=== PATIENT | female | born 1955 | race Caucasian/White ===

== ENCOUNTER → 2018-02-04 01:19 | Outpatient (CLI) | payer BC, SELFPAY ==
[2018-02-04 12:19] LABS: TSH 1.46 uIU/mL (0.358-3.74)
== END ==
PROVIDERS: PCP Family Medicine; Visit Provider Family Medicine
DX: E03.9 Hypothyroidism, unspecified (principal)
CPT/HCPCS: 36415; 84443

== ENCOUNTER 2018-10-20 00:26 | Outpatient (CLI) | payer BC, SELFPAY ==
[2018-10-20 10:21] LABS: Anion Gap 5.9 mmol/L (3-11); BUN 13 mg/dL (7-18); CO2 31.1 mmol/L (21.0-32.0); CREATININE 0.74 mg/dL (0.55-1.02); Calcium 9.4 mg/dL (8.5-10.1); Chloride 104 mmol/L (98-107); Glucose 72 mg/dL (70-100); Potassium 4.2 mmol/L (3.5-5.1); Sodium 141 mmol/L (136-145); TSH 1.49 uIU/mL (0.358-3.74)
--- NOTE | 2018-10-20 12:28 | DI.MAMMO_ITS ---
SYMPTOMS/DIAGNOSIS: SCREENING, Z12.31 MAMMOGRAMS: Mammograms were interpreted according to the usual protocol including computer analysis with CAD system, tomosynthesis and C view imaging. The breast tissue is moderately radiodense. There is no dominant mass. There are no suspicious calcifications. There has been no significant interval change when compared with prior images. SUMMARY: No evidence of malignancy, category 1. Yearly screening mammography is recommended. Breast density category B. MQSA ASSESSMENT OF FINDINGS: Negative. Category 1. Patient will receive a letter notifying them of these results. BI-RADS category B. There are scattered areas of fibroglandular density.
== END 2018-10-20 00:46 ==
PROVIDERS: PCP Family Medicine; Visit Provider Family Medicine
DX: Z12.31 Encounter for screening mammogram for malignant neoplasm of breast (principal); Z13.1 Encounter for screening for diabetes mellitus; E03.9 Hypothyroidism, unspecified
CPT/HCPCS: 36415; 77063; 77067; 80048; 84443

== ENCOUNTER 2019-02-17 11:29 | Outpatient (CLI) | payer BC, SELFPAY ==
[2019-02-17 13:23] LABS: FREE T4 1.07 ng/dL (0.76-1.46); TSH 1.36 uIU/mL (0.36-3.74)
[2019-02-17 22:06] LABS: T3, Total 103 ng/dl (97-169)
== END 2019-02-17 11:49 ==
PROVIDERS: PCP Family Medicine; Visit Provider Family Medicine
DX: E03.9 Hypothyroidism, unspecified (principal)
CPT/HCPCS: 36415; 84439; 84443; 84480

== ENCOUNTER 2019-05-31 10:25 | Outpatient (REF) | payer BC, SELFPAY ==
[2019-05-31 11:05] LABS: Bilirubin Negative (Negative); Blood Small (Negative); Clarity Sl Cloudy (Clear); Glucose Negative (Negative); Ketones Negative (Negative); Leukocyte Esterase Small (Negative); Nitrite Negative (Negative); Urobilinogen 0.2 EU/dL (Up TO 0.2)
[2019-05-31 11:36] LABS: Bacteria Moderate HPF (Negative); Epithelial Cells Few HPF (Negative); WBC >50 HPF (0-5)
[2019-05-31 11:37] LABS: C & S Indicated? Yes; Crystals Negative HPF (Negative); Mucus Negative (Negative)
== END 2019-05-31 10:45 ==
LOC: LBN 10:25
PROVIDERS: PCP Family Medicine; Visit Provider Family Medicine
DX: R30.0 Dysuria (principal)
CPT/HCPCS: 87077; 81003; 81015; 87086; 87186

== ENCOUNTER 2019-12-14 00:56 | Outpatient (CLI) | payer BC, SELFPAY ==
--- NOTE | 2019-12-14 08:00 | DI.US_ITS ---
EXAM: US RENAL CLINICAL HISTORY: F/U BENIGN NEOPLASM RT KIDNEY,D30.01. TECHNIQUE: [place] scale, color and spectral Doppler were used. COMPARISON: CT CHEST ABD PELVIS WITH CONTRAST from 09/10/2014 FINDINGS: Renal size in cm: Right: 10.8 left: 10.8 Echogenicity: Normal. Hydronephrosis: No. Cyst or mass: 0.7 x 0.7 x 0.6 cm round well-circumscribed hyperechoic lesion in the midpole of the le ft kidney. Nephrolithiasis: No. Other findings: None. Bladder:Normal. Ureteral jets: Right: Visualized and unremarkable. Left: Visualized and unremarkable. Prevoid vol:410 cc Postvoid vol:12 cc DOPPLER FINDINGS: Normal and symmetric blood flow to the kidneys. IMPRESSION: 0.7 cm hyperechoic well-circumscribed lesion in the midpole of the left kidney. Sonographically, thi s is consistent with a benign lesion such as an angiomyolipoma. DATA REPOSITORY:
--- NOTE | 2019-12-14 11:21 | DI.MAMMO_ITS ---
EXAM: MG MAMMO SCREENING CLINICAL HISTORY: screening,Z12.39 TECHNIQUE: Bilateral full field digital CC and MLO mammographic images were obtained with 3D tomosyn thesis and utilizing computer aided detection (CAD). COMPARISON: Available for comparison. FINDINGS: Masses/Architectural Distortion: None seen. Microcalcifications: No suspicious pleomorphic-type are seen. Skin Thickening/Nipple Retraction: None. IMPRESSION: 1. No significant interval change with no specific features of malignancy noted. 2. Unless there is more urgent need, screening mammography is recommended, as per [employer] guidelines. BI-RADS Category 1 - Negative Breast Density - Category B - Scattered areas of fibroglandular density A negative radiographic report should not delay biopsy if a dominant or clinically suspicious mass is present. Up to ten percent of cancers are not identified on mammography. A negative report may reinforce clinical impression. Adenosis and dense breasts may obscure an underlying neoplasm. False positive reports average 6 to 10%. Patient will receive a letter notifying them of these results.
== END 2019-12-14 01:16 ==
PROVIDERS: PCP Family Medicine; Visit Provider Nurse Practitioner
DX: Z12.31 Encounter for screening mammogram for malignant neoplasm of breast (principal); D17.71 Benign lipomatous neoplasm of kidney
CPT/HCPCS: 76770; 77063; 77067

== ENCOUNTER 2019-12-14 01:33 | Outpatient (CLI) | payer BC, SELFPAY ==
[2019-12-14 12:25] LABS: Calculated LDL 96 mg/dL (<100); Cholesterol 203 mg/dL (<200); HDL Cholesterol 81 mg/dL (40-60); TSH 1.33 uIU/mL (0.36-3.74); Triglyceride 130 mg/dL (<150)
== END 2019-12-14 01:53 ==
PROVIDERS: PCP Family Medicine; Visit Provider Nurse Practitioner
DX: E03.9 Hypothyroidism, unspecified (principal); Z13.6 Encounter for screening for cardiovascular disorders
CPT/HCPCS: 36415; 80061; 84443

== ENCOUNTER 2020-01-06 07:48 | Outpatient (CLI) | payer BC, SELFPAY | END 2020-01-06 08:08 | PROVIDERS: PCP Family Medicine; Visit Provider Family Medicine | DX: Z11.59 Encounter for screening for other viral diseases (principal) | CPT/HCPCS: U0003 ==

== ENCOUNTER 2020-04-30 07:35 | Outpatient (CLI) | payer BC, SELFPAY ==
[2020-05-02 20:08] LABS: Patient Race White; SARS-CoV-2 RNA Undetected (Undetected); SARS-CoV-2 Specimen Source Nasal
== END 2020-04-30 07:55 ==
PROVIDERS: PCP Family Medicine; Visit Provider Family Medicine
DX: Z11.59 Encounter for screening for other viral diseases (principal)
CPT/HCPCS: U0003

== ENCOUNTER 2020-05-23 17:36 | Outpatient (REF) | payer BC, SELFPAY | END 2020-05-23 17:56 | LOC: LBN 17:36 | PROVIDERS: PCP Family Medicine; Visit Provider Nurse Practitioner Family | DX: N39.0 Urinary tract infection, site not specified (principal) | CPT/HCPCS: 87077; 87086; 87186 ==

== ENCOUNTER 2020-10-09 04:12 | Outpatient (CLI) | payer BC, SELFPAY ==
[2020-10-09 13:48] LABS: HCT 41.4 % (36.0-46.0); HGB 13.7 g/dL (11.2-15.7); MCH 30.4 pg (27.0-33.0); MCHC 33.1 % (32.0-36.0); MCV 91.8 fL (80-95); MPV 9.2 fL (8.0-11.0); Platelet Count 368 10^3/uL (130-400); RBC 4.51 10^6/uL (3.93-5.22); RDW 12.9 % (11.7-14.6); RDW-SD 43.5 fL; WBC 6.98 10^3/uL (4.4-10.8)
[2020-10-09 14:58] LABS: ALT 32 U/L (14-59); AST 19 U/L (15-37); Albumin 4.3 g/dL (3.4-5.0); Alkaline Phosphatase 78 U/L (46-116); Anion Gap 8.7 mmol/L (3-11); BUN 15 mg/dL (7-18); Bilirubin, Total 0.4 mg/dL (0.2-1.0); CO2 29.3 mmol/L (21.0-32.0); CREATININE 0.8 mg/dL (0.55-1.02); Calcium 9.9 mg/dL (8.5-10.1); Chloride 102 mmol/L (98-107); Glucose 90 mg/dL (74-106); Potassium 4.4 mmol/L (3.5-5.1); Sodium 140 mmol/L (136-145); TSH 1.99 uIU/mL (0.36-3.74); Total Protein 6.8 g/dL (6.4-8.2)
== END 2020-10-09 04:13 | disposition home or self-care (01) ==
LOC: LBO 04:12
PROVIDERS: PCP Family Medicine; Visit Provider Family Medicine
DX: E03.9 Hypothyroidism, unspecified (principal); R53.83 Other fatigue
CPT/HCPCS: 36415; 80053; 85027; 84443

== ENCOUNTER 2021-01-30 02:21 | Outpatient (CLI) | payer BC, SELFPAY ==
--- NOTE | 2021-01-30 13:12 | DI.MAMMO_ITS ---
Exam(s) MAMMO SCREENING EXAM: MAMMO SCREENING CLINICAL HISTORY: screening,Z12.39. TECHNIQUE: Bilateral full field digital CC and MLO mammographic images were obtained with 3D tomosyn thesis and utilizing computer aided detection (CAD). COMPARISON: Prior mammograms dating back to 2010, the most recent being December 2019. FINDINGS: In the left breast on 3D cc imaging there is a 6 x 4 millimeter nodule located approximately 4 cm in from the nipple on the 3D cc image. This is unchanged from 2013 and therefore benign. In the right breast there is a slightly lobulated noncalcified nodule measuring 4 x 2 millimeters loc ated 4-5 cm in from the nipple on 3D MLO imaging. Is also unchanged from prior studies No malignant-appearing microcalcification groups in either breast There is no significant architectural distortion nor skin thickening-retraction. IMPRESSION: Stable benign findings. No radiographic evidence of malignancy. BI-RADS Category 2 - Benign Findings Breast Density - Category B - Scattered areas of fibroglandular density Breast density Category C or D implies that the patient has dense breast tissue. Dense breast tissue can make it harder to find cancer on a mammogram. Dense breast tissue is also associated with an incr eased risk of breast cancer. This information about the result of the mammogram report was provided to the patient to raise their awareness. Use this report when you speak with the patient about their risks for breast cancer, which includes their family history. At that time, you may recommend additional screening tests (Ultrasoun d or MRI) as these tests may add significant information. A negative radiographic report should not delay biopsy if a dominant or clinically suspicious mass is present. Up to ten percent of cancers are not identified on mammography. A negative report may reinforce clinical impression. Adenosis and dense breasts may obscure an underlying neoplasm. False positive reports average 6 to 10%. Patient will receive a letter notifying them of these results.
== END 2021-01-30 02:41 ==
PROVIDERS: PCP Family Medicine; Visit Provider Nurse Practitioner Family
DX: Z12.31 Encounter for screening mammogram for malignant neoplasm of breast (principal); R92.8 Other abnormal and inconclusive findings on diagnostic imaging of breast
CPT/HCPCS: 77063; 77067

== ENCOUNTER 2021-03-18 14:28 | Outpatient (REF) | payer BC, SELFPAY | END 2021-03-18 14:29 | disposition home or self-care (01) | LOC: LBN 14:28 | PROVIDERS: PCP Family Medicine; Visit Provider Nurse Practitioner Family | DX: R30.9 Painful micturition, unspecified (principal) | CPT/HCPCS: 87077; 87086; 87186 ==

== ENCOUNTER 2021-04-02 14:46 | Outpatient (REF) | payer BC, SELFPAY | END 2021-04-02 14:47 | disposition home or self-care (01) | LOC: LBN 14:46 | PROVIDERS: PCP Family Medicine; Visit Provider Nurse Practitioner Family | DX: R35.0 Frequency of micturition (principal) | CPT/HCPCS: 87086 ==

== ENCOUNTER 2021-10-08 04:24 | Outpatient (CLI) | payer BC, SELFPAY ==
[2021-10-08 08:15] LABS: Abs Immature Grans 0.02 10^3/uL (0.0-0.06); Absolute Basophil Count 0.03 10^3/uL (0.0-0.2); Absolute Eosinophil Count 0.32 10^3/uL (0.0-0.7); Absolute Lymphocyte Count 1.44 10^3/uL (1.2-3.4); Absolute Monocyte Count 0.38 10^3/uL (0.1-0.8); Absolute Neutrophil Count 2.63 10^3/uL (1.2-6.7); Basophils % 0.6; Eosinophils % 6.6; HCT 41.7 % (36.0-46.0); HGB 13.7 g/dL (11.2-15.7); Immature Grans % 0.4; Lymphocytes % 29.9; MCH 31.5 pg (27.0-33.0); MCHC 32.9 % (32.0-36.0); MCV 95.9 fL (80-95); MPV 9.2 fL (8.0-11.0); Monocytes % 7.9; Neutrophils % 54.6; Nucleated RBC 0 %; Platelet Count 306 10^3/uL (130-400); RBC 4.35 10^6/uL (3.93-5.22); RDW 12.4 % (11.7-14.6); RDW-SD 43.8 fL; WBC 4.82 10^3/uL (4.4-10.8)
[2021-10-08 10:29] LABS: ALT 26 U/L (14-59); AST 16 U/L (15-37); Albumin 3.8 g/dL (3.4-5.0); Alkaline Phosphatase 73 U/L (46-116); BUN 18 mg/dL (7-18); Bilirubin, Total 0.6 mg/dL (0.2-1.0); CREATININE 0.7 mg/dL (0.55-1.02); Calcium 9.1 mg/dL (8.5-10.1); Calculated LDL 90 mg/dL (<100); Chloride 108 mmol/L (98-107); Cholesterol 188 mg/dL (<200); Ferritin 66 ng/mL (8-252); Glucose 91 mg/dL (74-106); HDL Cholesterol 72 mg/dL (40-60); Potassium 4.6 mmol/L (3.5-5.1); Sodium 144 mmol/L (136-145); TSH (W/Ref FT4) 2.54 uIU/mL (0.36-3.74); Total Protein 6.3 g/dL (6.4-8.2); Triglyceride 133 mg/dL (<150)
[2021-10-09 12:57] LABS: Lab Add On Test DONE
[2021-10-09 14:27] LABS: Vitamin B12 535 pg/mL (193-986)
[2021-10-10 05:34] LABS: Vitamin D 25 Total 38.2 ng/mL (30-100)
== END 2021-10-08 04:25 | disposition home or self-care (01) ==
LOC: LBO 04:24
PROVIDERS: PCP Nurse Practitioner Adult Health; Referring Provider Nurse Practitioner Adult Health; Visit Provider Nurse Practitioner Adult Health
DX: R53.83 Other fatigue (principal); E03.9 Hypothyroidism, unspecified; M85.89 Other specified disorders of bone density and structure, multiple sites; Z13.220 Encounter for screening for lipoid disorders; Z51.81 Encounter for therapeutic drug level monitoring; R71.8 Other abnormality of red blood cells
CPT/HCPCS: 36415; 80053; 80061; 82306; 82607; 82728; 82746; 84443; 85025

== ENCOUNTER → 2022-03-12 02:34 | Outpatient (CLI) | payer BC, SELFPAY ==
--- NOTE | 2022-03-12 08:47 | DI.MAMMO_ITS ---
Exam(s) MAMMO SCREENING EXAM: MAMMO SCREENING CLINICAL HISTORY: screening TECHNIQUE: Bilateral full field digital CC and MLO mammographic images were obtained with 3D tomosyn thesis and utilizing computer aided detection (CAD). COMPARISON: Available for comparison. FINDINGS: Masses/Architectural Distortion: There is a stable nodule in the lower inner quadrant of the left essence ast. There is a new 5 mm nodule in the upper right breast seen on the MLO view approximately 3 cm fr om the nipple. Microcalcifications: No suspicious pleomorphic-type are seen. Skin Thickening/Nipple Retraction: None. IMPRESSION: 1. New ovoid nodule in the upper right breast on the MLO view. 2. This area should be further evaluated with a spot compression view and right breast ultrasound. BI-RADS Category 0 - Assessment Incomplete: Need additional imaging evaluation Breast Density - Category B - Scattered areas of fibroglandular density Breast density category C or D implies that the patient has dense breast tissue. Dense breast tissue is very common and is not abnormal but dense breast tissue can make it harder to find cancer on a ma mmogram. Also, dense breast tissue may increase their breast cancer risk. This information about the result of the mammogram report was provided to the patient to raise their awareness. Use this report when you speak with the patient about their risks for breast cancer, which includes their family hist ory. At that time, you may recommend for more screening tests (Ultrasound or MRI) as they might be us eful based on their risk. A negative radiographic report should not delay biopsy if a dominant or clinically suspicious mass is present. Up to ten percent of cancers are not identified on mammography. A negative report may reinforce clinical impression. Adenosis and dense breasts may obscure an underlying neoplasm. False positive reports average 6 to 10%. Patient will receive a letter notifying them of these results.
== END ==
PROVIDERS: PCP Nurse Practitioner Adult Health; Visit Provider Nurse Practitioner Family
DX: Z12.31 Encounter for screening mammogram for malignant neoplasm of breast (principal)
CPT/HCPCS: 77063; 77067

== ENCOUNTER → 2022-03-17 01:29 | Outpatient (CLI) | payer BC, SELFPAY ==
--- NOTE | 2022-03-17 | DI.US_ITS ---
Exam(s) MG MAMMO SCREEN CALL BACK UNI US BREAST RT COMPLETE EXAM: MG MAMMO SCREEN CALL BACK UNI -RIGHT AND COMPLETE RIGHT BREAST ULTRASOUND CLINICAL HISTORY: F/U MAMMO, NEW UPPER RT BREAST NODULE. TECHNIQUE: Unilateral spot mammographic images obtained with 3D tomosynthesisand utilizing computer aided detection (CAD). . Complete RIGHT breast Ultrasound was also performed, including all 4 quadrants, the retroareolar paulino on, and the ipsilateral axilla. COMPARISON: Prior mammograms were reviewed. This additional imaging was performed due to findings described on the recent screening mammogram of 03/12/2022. FINDINGS: DIAGNOSTIC RIGHT BREAST MAMMOGRAM: Additional mammographic views performed today do not dissipate the small nodule described on the rece nt screening mammogram. However, it exhibits a notch,, probably consistent with a small benign intra mammary lymph node. COMPLETE RIGHT BREAST ULTRASOUND: Ultrasound performed today reveals no evidence of solid or significant cystic lesions in all 4 quadra nts nor in the retroareolar region.. This is further evidence that the finding on the mammogram is m ost probably a benign intramammary lymph node. No focal ultrasound findings in the immediate retroar eolar region. Scanning of the ipsilateral right axilla is negative for adenopathy. IMPRESSION: Benign-appearing findings as described above. Appropriate follow-up , as discussed by myself with the patient and her today, is repeat righ t breast imaging in 6 months, this to include repeat right breast mammogram and ultrasound. Earlier imaging would be recommended if there is a self detected breast change noted.. The patient was informed of these findings and recommendations prior to leaving the department today. BI-RADS Category 3 - 6 month - Probably Benign Finding: Recommend follow-up mammography in 6 months Breast Density - Category C - Heterogeneously dense Breast density Category C or D implies that the patient has dense breast tissue. Dense breast tissue can make it harder to find cancer on a mammogram. Dense breast tissue is also associated with an incr eased risk of breast cancer. This information about the result of the mammogram report was provided to the patient to raise their awareness. Use this report when you speak with the patient about their risks for breast cancer, which includes their family history. At that time, you may recommend additional screening tests (Ultrasoun d or MRI) as these tests may add significant information. A negative radiographic report should not delay biopsy if a dominant or clinically suspicious mass is present. Up to ten percent of cancers are not identified on mammography. A negative report may reinforce clinical impression. Adenosis and dense breasts may obscure an underlying neoplasm. False positive reports average 6 to 10%. Patient will receive a letter notifying them of these results.
== END ==
PROVIDERS: PCP Nurse Practitioner Adult Health; Visit Provider Nurse Practitioner Family
DX: Z12.31 Encounter for screening mammogram for malignant neoplasm of breast (principal); R92.8 Other abnormal and inconclusive findings on diagnostic imaging of breast; N60.81 Other benign mammary dysplasias of right breast
CPT/HCPCS: 76642; 77063; 77067

== ENCOUNTER → 2022-05-20 02:31 | Outpatient (CLI) | payer BC, SELFPAY ==
--- NOTE | 2022-05-20 09:00 | ETT_ITS ---
APPROVED REPORT Exam: Exercise Treadmill Patient Location: Out-Patient Room/Bed: Stress Nurse: Linda Mazariegos RN Ordering Provider:SUDHA ZAMAN, Contact Number: [phone] BMI: 24.95 Baseline Rhythm: Sinus Rhythm, RBBB, LPFB Comment: inverted T wave V2 Indications: H/O SUPRAVENTRICULAR TACHYCARDIA, LEG EDEMA, CHEST PAIN Medical History Medical History: SVT s/p Ablation, Hypothyroidism, Depression, Spontaneous pneumothorax x 2 (2000) w/ repair, bilateral leg edema Cardiac Medications: None Allergies: Sulfa, Ciprofloxacin Cardiac Risk Factors: FHX of CAD Previous Cardiac Procedures: Ablation (2012) Pretest Chest Pain Characteristics: No chest pain Exercise History: Physically active Physical Disabilities: None Lung Sounds: Clear to auscultation Heart Sounds: Regular Stress Test Details Test: Exercise stress testing was performed using a Giuliano protocol. Rest Stress HR Resting HR Supine: 56 bpm Max Heart Rate (APMHR): 156 bpm Resting HR Standin bpm Target HR (85% APMHR): 132 bpm Max HR Achieved: 169 bpm % of APMHR: 108 Recovery HR: 73 bpm HR response to stress: Normal HR response to stress BP Resting BP Supine: 138/76 mmHg Resting BP Standin/72 mmHg Max BP: 178/80 mmHg Recovery BP: 138/78 mmHg BP response to stress: Normal blood pressure response to stress. ECG Resting ECG: Sinus Rhythm, RBBB, LPFB, inverted T wave in V2 Ectopy: None Stress ECG: Sinus Tachycardia ST Change: No significant ST segment changes noted Arrhythmia: rare PVC Comment: difficult to interpret d/t significant artifact as exercise progressed Recovery ECG: Sinus Rhythm Recovery ST Change: No significant ST segment changes noted Recovery Arrhythmia: rare PAC Clinical Reason for Termination: Fatigue Stress Symptoms: General Fatigue Exercise duration: 11 min22 sec Highest Stage Reached: Stage 4: 4.2 mph at 16% grade. Exercise capacity: 13.48 METs Avila Treadmill Score: 5.7 Rate Pressure Product: 05842 Stress ECG Conclusion 1. Resting electrocardiogram showed right bundle branch block and left posterior fascicular block 2. Patient exercised on the Giuliano protocol and completed a workload of 13.48 METS, limited by fatigue 3. Normal heart rate and blood pressure response to exercise. The patient achieved greater than 100% of predicted heart rate for age 4. The electrocardiographic portion of the test did not demonstrate any evidence of myocardial ischem ia 5. Significant artifact was noted at peak exercise 6. There were no significant dysrhythmias Avila Treadmill Score is 5.7 which is Low risk. Stress Test Summary STAGE Time (mins) Speed (mph) Grade (%) HR BP SpO2 SYMPTOMS METS Supine 56 138/76 Standing 63 122/72 1 3 1.7 10 80 132/68 98 4.5 2 6 2.5 12 94 140/62 7 3 9 3.4 14 122 158/62 10 1 min recovery 143 164/78 3 min recovery 82 178/80 6 min recovery 73 138/78
== END ==
PROVIDERS: PCP Nurse Practitioner Adult Health; Visit Provider Nurse Practitioner Adult Health
DX: Z86.79 Personal history of other diseases of the circulatory system (principal); R60.0 Localized edema; R07.9 Chest pain, unspecified
CPT/HCPCS: 93017

== ENCOUNTER → 2022-05-20 08:20 | Outpatient (CLI) | payer BC, SELFPAY ==
--- OUTSIDE RECORDS SUMMARY | 2022-05-20 08:23 | XMS_ITS | Encounter Summary ---
:1955 Author Organization [facility] Address [address] [place] [id number] Care Team Providers Name Role Phone Chu Wayne MD Primary Care Provider Unavailable Encounter Details Date Type Department Care Team Description 02/09/2017 Hospital Encounter [facility]- [place] Unknown, Provider, Venkat Gin PETERSON [address] [facility] [phone] [place] [address] (Work) [phone] Social History Tobacco Use Types Packs/Day Years Used Date Smoking Tobacco: Former Alcohol Use Standard Drinks/Week Comments Yes 0 (1 standard drink = 0.6 oz pure alcoho l) 1-2 glasses wine/evening Sex Assigned at Date Recorded Not on file documented as of this encounter Medications at Time of Discharge Medication Sig Dispensed Refills Start Date End Date magnesium oxide (MAG-OX) Take 500 mg by mouth 0 400 mg tablet daily. MV,CA,MIN/FA/HERBAL NO.157 Take by mouth. 0 (ESTROVEN MAXIMUM STRENGTH ORAL) documented as of this encounter Discharge Disposition Disposition Code Departure Means Destination Home or Self Intermediate documented in this encounter Plan of Treatment Not on filedocumented as of this encounter Visit Diagnoses Not on filedocumented in this encounter Care Teams Physician Allergist Immunologist Relationship Specialty Start Date End Date Chu Wayne MD PCP - General 06/07/13 documented as of this encounter
--- OUTSIDE RECORDS SUMMARY | 2022-05-20 08:23 | XMS_ITS | Encounter Summary ---
:1955 Author Organization [facility] Address [address] [place] [address] Care Team Providers Name Role Phone Ariane Wayne MD Primary Care Provider Unavailable Encounter Details Date Type Department Care Team Description 06/08/2013 Hospital Encounter [facility] Debbie SVT Cardiovascular Unit Krishan Sierra, (supraventricular [address] [facility] tachycardia) [place] [address] [place] [address] [place] (Primary [phone] [address] D[address]) [place] [address] Social History Tobacco Use Types Packs/Day Years Used Date Smoking Tobacco: Former Alcohol Use Standard Drinks/Week Comments Yes 0 (1 standard drink = 0.6 oz pure alcoho l) 1-2 glasses wine/evening Sex Assigned at Date Recorded Not on file documented as of this encounter Last Filed Vital Signs Vital Sign Reading Time Taken Comments Blood Pressure 100/69 06/08/2013 1545 EST Pulse 58 06/08/2013 0633 EST Temperature 37.2 ??C (99 ??F) 06/08/2013 1530 EST Respiratory Rate 18 06/08/2013 1545 EST Oxygen Saturation 100% 06/08/2013 1545 EST Inhaled Oxygen Concentration - - Weight 62.6 kg (138 lb) 06/08/2013 0655 EST Height 165.1 cm (5' 5) 06/08/2013 0655 EST Body Mass Index 22.96 06/08/2013 0655 EST documented in this encounter Discharge Instructions Krisahn Hatch MD - 06/08/2013 Discharge Instructions for Non Anesthesia Ablation and Electrophysiogy Study (EPS) Patients 1. Wound Care: ?? You may remove the Band-Aids/Dressings from the sites the next morning ?? You may shower the following day. ?? No tub bathing for five days. This includes hot tubs and pools. 2. Call your physician or nurse if: ?? You develop drainage, redness, or swelling at any of the sites ?? You develop a fever ?? You develop increased tenderness and/or increased bruising over sites which doesn't resolve in 2 days ?? You develop a persistent and/or productive cough ?? Your symptoms reoccur 3. Activity: ?? You can resume your normal activities in one week, unless you have been instructed otherwise ?? No vigorous activity for 1 week after your ablation. This includes running, squatting and heavy lifting (>10 lbs). ?? If you are traveling by car or airplane in the next week, you will need to stand and move around every 2 hours to promote circulation ?? You may resume driving after 24 hours. ?? You may return to work after 3 days if your work demands are not physical. 4. Medications: ?? Resume prior medications unless otherwise instructed If you have any questions or concerns, please don't hesitate to call [facility]iology at [phone]. AttachmentsThe following attachments cannot be sent through [facility] Everywhere. ELECTROPHYSIOLOGY STUDY AND CATHETER ABLATION: WHAT TO EXPECT AT HOME (SWEDISH) documented in this encounter Medications at Time of Discharge Medication Sig Dispensed Refills Start Date End Date magnesium oxide (MAG-OX) Take 500 mg by mouth 0 400 mg tablet daily. MV,CA,MIN/FA/HERBAL NO.157 Take by mouth. 0 (ESTROVEN MAXIMUM STRENGTH ORAL) documented as of this encounter Discharge Disposition Disposition Code Departure Means Destination Home or Self Care documented in this encounter Progress Notes Shwetha Tejeda RN - 06/08/2013 1344 EST 1320 Received report from Krystle SAMSON and care assumed. Patient complains of chest pain. Toradol ordered. BP low. NS increased to 50cc/hr. No complications at site. Right and left leg wounds are dry and intact. Repeated to patient to keep legs straight and head down. 1402 Patient fed tuna, tomato soup and water by RN. now at bedside. agrees to feed patient when RN not there but to keep her head down and legs straight. 1417 Patient and given discharge instructions. Both verbalize understanding. Patient ate onesandwich worth of tuna, one small can of tomato soup and water. Presently wants to rest. 1553 Patient out of bed after passing orthos. paged to see patient before discharge. 1618 Patient out of bed and tolerates being out of bed well. Seen by . 1636 Patient discharged to home. Patient left CVU in wheelchair pushed by her . Rissa Capone RN - 06/08/2013 1246 EST 1254 pt arrived awake and alert, groin sites clean dry intact, pain at 2 out of 10 Karina Batres LPN - 06/08/2013 0715 EST 0625 Iam Kurtz Arrived in CVU walking, used BR. Orders released and acknowledged by RN. Denies pain at this time. 0625 labs sent stat; EP prep completed. 0635 Spouse at bedside, call song with in reach, stretcher in low position, side rails up. Report toco-signing RN. 0650 Pt states comfortable; waiting for procedure. FANTASMA Barillas 0725 Pt updated- - waiting for MD to come and consent. Demonstrated understanding. Lab called by charge nurse- - results of blood test. MM 0730 Dr. Sapp in speaking to pt and spouse. Signed consent with chart. MM 0800 OOB to BR- - voided. Received results of lab tests. 0805 To EP lab via stretcher with transport and spouse. MM documented in this encounter H&P Notes ASSOCIATE PROFESSOR OF COMMUNICATION, SCAN 2 - 06/13/2013 1016 EST Krishan Jones MD - 06/08/2013 0811 EST Cardiology EP H&P Admit Date: 06/08/2013 Date of Service: 06/08/2013 PCP: ARIANE WAYNE MD Code Status: Full Code Chief Complaint: palpitations HPI: 57 yo healty and very active woman with long history of paroxysmal palpitations and tachycardia, getting worse, especially with exercise, in recent months. Occ. Chest discomfort. Recently documented 30min SVT on Holter. Denies SOB, dizzines, syncope, orthopnea, PND, edema, fevers, chills myalgia, arthralgia, bleeding, digestive problems. PMH PSH Past Medical History Diagnosis Date ??? SVT (supraventricular tachycardia) ??? Pneumothorax 1999; 2000 Past Surgical History Procedure Laterality Date ??? Hysterectomy Social History Family History History Substance Use Topics ??? Smoking status: Former Smoker ??? Smokeless tobacco: Not on file ??? Alcohol Use: Yes 1-2 glasses wine/evening Father with CAD and CABG at 65. Medications Prescriptions prior to admission Medication Status Sig Dispense Refill ??? magnesium oxide (MAG-OX) 400 mg tablet Active Take 500 mg by mouth daily. ??? MV,CA,MIN/FA/HERBAL NO.157 (ESTROVEN MAXIMUM STRENGTH ORAL) Active Take by mouth. No prescriptions prior to admission Allergies Allergies Allergen Reactions ??? Sulfa (Sulfonamide Antibiotics) Other (See Comments) Mouth Sores Review of Systems: A ten point review of systems was performed. Pertinent positives are listed above in HPI, all othersare negative. Objective/Physical Exam: VS: Patient Vitals for the past 8 hrs: BP Pulse Heart Rate Resp Temp SpO2 O2 Device 06/08/13 0633 119/73 mmHg 58 58 BPM 18 36.2 ??C (97.2 ??F) 100 % Room air Pain: Patient Vitals for the past 8 hrs: Numeric Pain Level (Scale 1-10) 06/08/13 0633 0 Weight: Weight : 62.596 kg (138 lb) Body mass index is 22.96 kg/(m^2). Glucose Readings (last 8 hours): No results found for this basename: GLUCOSEFINGE, in the last 72 hours Exam: General appearance: alert, cooperative, no distress Skin: Skin color, temperature, turgor normal. No rashes or lesions Head: Normocephalic, without obvious abnormality, atraumatic Eyes: conjunctivae/corneas clear Neck: supple, symmetrical, trachea midline, no carotid bruit and no JVD Lungs: clear to auscultation bilaterally Heart: regular rate and rhythm, S1, S2 normal, no murmur, click, rub or gallop Abdomen: soft, non-tender; bowel sounds normal Mental Status: awake and alert; oriented to person, place, and time Extremities: extremities warm, atraumatic, no cyanosis or edema Pressure Ulcer Present on admission? No Data Review: Labs: I have personally reviewed CBC: Lab Results Component Value Date WBC 5.70 06/08/2013 RBC 4.35 06/08/2013 HGB 13.7 06/08/2013 HCT 40.1 06/08/2013 MCV 92 06/08/2013 MCH 31.5 06/08/2013 MCHC 34.2 06/08/2013 PLT 313 06/08/2013 BMP: Lab Results Component Value Date NA 141 06/08/2013 K 4.2 06/08/2013 CL 103 06/08/2013 CO2 29 06/08/2013 BUN 17 06/08/2013 CREATININE 0.72 06/08/2013 Coagulation: Lab Results Component Value Date PROTIME 9.9 06/08/2013 INR 0.9 06/08/2013 Other Studies: PE CT nl, Echo nl, Stress Echo nl. eGFR calculation: GFR, Calculated Date Value Range Status 06/08/2013 >60 >60 ml/min/1.73m2 Final Assessment: 57 yo healty and very active woman with long history of paroxysmal palpitations and tachycardia. Documented SVT on Holter. AVNRT vs. AVRT vs. AT. Not interested in Medications. Plan : Patient Active Hospital Problem List: SVT (supraventricular tachycardia) (06/08/2013) EPS/Ablation today. Discharge Plan: Home or self care today KRISHAN JONES MD 06/08/2013 8:16 documented in this encounter Procedure Notes Krishan Jones MD - 06/08/2013 1236 ESTProcedure(s): [id number] Pre-Procedure Diagnose(s): SVT (supraventricular tachycardia) (HCC-CMS) ([facility]) Post-Procedure Diagnose(s): AVNRT (AV reji re-entry tachycardia) (HCC-CMS) (HCC) Electrophysiology Laboratory Preliminary Report -- Invasive Electrophysiology Procedure Date of Service/Procedure: 06/08/2013 Attending Physician: Krishan Jones MD Pre-Procedure Diagnosis/Indication: Iam Kurtz is a 57 y.o. 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 Anesthesia: A moderate level of anesthesia/conscious sedation was used., Local anesthesia was used.. Access: Right femoral vein 1 x 7.0 fr and 8.5 fr Left femoral vein 3 x 7.0 fr Post-Procedure Condition: The condition of the patient was Good. Complications: None. Estimated Blood Loss: Minimal. Unless otherwise noted, there were no specimens removed, cultures obtained, or drains retained. Clinical Trial: The patient is not enrolled in a clinical trial. 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 Post-Procedure Diagnosis: AVNRT (atypical, fast/slow) Plan: see post-procedure orders and bedrest for 3 hour(s). At the completion of the procedure, the attending physician has explained the findings, therapies, any complications and treatment plan to the patient. With the patients consent, all family members andpatient support persons who were present at the conclusion of the procedure have been notified of these results and treatment plans as well. Post Procedural Disposition: Outpatient status is indicated. Reference: Hospitalization Criteria for Pacemaker and ICD Placement and EP/Ablation; Heart Rhythm Society; Revised December, Final report will appear on imaging tab when complete. KRISHAN JONES MD 06/08/2013 12:39 documented in this encounter Plan of Treatment Not on filedocumented as of this encounter Procedures Procedure Name Priority Date/Time Associated Comments Diagnosis ECG REPORT - SCANNED 06/22/2013 10:49 EST ECG REPORT - SCANNED 06/13/2013 14:04 EST INVASIVE CARDIOLOGY 06/13/2013 10:16 REPORT-SCANNED EST ECG REPORT - SCANNED 06/13/2013 10:16 EST EKG 12-LEAD Routine 06/08/2013 13:39 Results for this EST procedure are i n the results section. EKG 12-LEAD Routine 06/08/2013 6:52 Results for this EST procedure are i n the results section. PROTIME STAT 06/08/2013 6:45 Results for this EST procedure are i n the results section. COMPLETE BLOOD COUNT STAT 06/08/2013 6:45 Resu lts for this EST procedure are i n the results section. BUN STAT 06/08/2013 6:45 Results for this EST procedure are i n the results section. CREATININE STAT 06/08/2013 6:45 Results for this EST procedure are i n the results section. ELECTROLYTES STAT 06/08/2013 6:45 Results for this EST procedure are i n the results section. documented in this encounter Results ECG REPORT - SCANNED (06/22/2013 10:49 EST) Specimen (Source) Anatomical Collection Method Collection Time Re ceived Time Location / / Volume Laterality 06/22/2013 10:49 EST Narrative This result has an attachment that is no t available. Scan 2 Full Stack Software Engineer PROCEDURE/MINOR SURGICAL ORD ERABLES ECG REPORT - SCANNED (06/13/2013 14:04 EST) Specimen (Source) Anatomical Collection Method Collection Time Re ceived Time Location / / Volume Laterality 06/13/2013 14:04 EST Narrative This result has an attachment that is no t available. Scan 2 Full Stack Software Engineer PROCEDURE/MINOR SURGICAL ORD ERABLES INVASIVE CARDIOLOGY REPORT-SCANNED (06/13/2013 10:16 EST) Specimen (Source) Anatomical Collection Method Collection Time Re ceived Time Location / / Volume Laterality 06/13/2013 10:16 EST Narrative This result has an attachment that is no t available. Scan 2 Full Stack Software Engineer PROCEDURE/MINOR SURGICAL ORD ERABLES ECG REPORT - SCANNED (06/13/2013 10:16 EST) Specimen (Source) Anatomical Collection Method Collection Time Re ceived Time Location / / Volume Laterality 06/13/2013 10:16 EST Narrative This result has an attachment that is no t available. Scan 2 Full Stack Software Engineer PROCEDURE/MINOR SURGICAL ORD ERABLES EKG 12-LEAD (06/08/2013 13:39 EST) Specimen (Source) Anatomical Collection Method Collection Time Re ceived Time Location / / Volume Laterality 06/08/2013 13:39 EST Narrative FA EKG - 06/21/2013 16:24 EST ?[facility] ? Test Date: ?2013-06-08 Pat Name: ? IAM KURTZ ? Department: ?? CVU ? Room: ? CVU14 Gender: ? F ?Signal Supervisor: ?? [id number] : ?1955 ? Requested By: KRISHAN JONES MD Order Number: [id number] ? Reading MD: ?? FRIEDLIUDMILAKE RONALDO MD ? Measurements Intervals ?[place] ? Rate: ? 74 ? P: ?77 WI: ? 238 ?QRS: ?98 QRSD: ? 139 ?T: ?42 QT: ? 397 ? QTc: ?424 ? Interpretive Statements SINUS RHYTHM WITH FIRST DEGREE AV BLOCK RIGHT BUNDLE BRANCH BLOCK Abnormal ECG. Compared to ECG 06/08/2013 06:52:50 Sinus rhythm now present Right bundle-branch block now present I have reviewed the tracing and have eit her agreed or edited the findings in this report. Electronically Signed On 16:24:41 EST by SYED HIGGINS MD. Procedure Note Syed Higgins MD - 06/21/2013Form atting of this note might be different from the original. [facility] Test Date: 2013-06-08 Pat Name: IAM KURTZ Department: CVU Room: [facility] Gender: F Signal Supervisor: [id number] : 1955 Requested By: KRISHAN PATEL MD Order Number: [id number] Reading MD: Kay HIGGINS MD Measurements Intervals [place] Rate: 74 P: 77 WI: 238 QRS: 98 QRSD: 139 T: 42 QT: 397 QTc: 424 Interpretive Statements SINUS RHYTHM WITH FIRST DEGREE AV BLOCK RIGHT BUNDLE BRANCH BLOCK Abnormal ECG. Compared to ECG 06/08/2013 06:52:50 Sinus rhythm now present Right bundle-branch block now present I have reviewed the tracing and have eit her agreed or edited the findings in this report. Electronically Signed On 16:24:41 EST by SYED HIGGINS MD. Krishan Jones MD CARDIAC ECG ORDERABLES Performing Organization Address City/State/ZIP Code Phon e Number [facility] EKG FA EKG EKG 12-LEAD (06/08/2013 6:52 EST) Specimen (Source) Anatomical Collection Method Collection Time Re ceived Time Location / / Volume Laterality 06/08/2013 6:52 EST Narrative [facility] EKG - 06/10/2013 13:10 EST ?[facility] ? Test Date: ?2013-06-08 Pat Name: ? IAM KURTZ ? Department: ?? CVU ? Room: ? CVU14 Gender: ? F ?Signal Supervisor: ?? [id number] : ?1955 ? Requested By: KRISHAN JONES MD Order Number: [id number] ? Reading MD: ?? JUAN KIRIT MD ? Measurements Intervals ?[place] ? Rate: ? 54 ? P: ?47 WI: ? 226 ?QRS: ?60 QRSD: ? 94 ? T: ?54 QT: ? 431 ? QTc: ?417 ? Interpretive Statements SINUS BRADYCARDIA WITH FIRST DEGREE AV B LOCK No previous ECG available for comparison Electronically Signed On 06-10-13 13:10: 40 EST by JUAN BETH MD Procedure Note Juan Beth Jr., MD - 06/10/2013For matting of this note might be different from the original. [facility] Test Date: 2013-06-08 Pat Name: IAM KURTZ Department: CVU Room: [facility] Gender: F Signal Supervisor: [id number] : 1955 Requested By: KRISHAN PATEL MD Order Number: [id number] Cynthia MD: Vitaliy BETH MD Measurements Intervals [place] Rate: 54 P: 47 WI: 226 QRS: 60 QRSD: 94 T: 54 QT: 431 QTc: 417 Interpretive Statements SINUS BRADYCARDIA WITH FIRST DEGREE AV B LOCK No previous ECG available for comparison Electronically Signed On 06-10-13 13:10: 40 EST by JUAN BETH MD Krishan Jones MD CARDIAC ECG ORDERABLES Performing Organization Address City/State/ZIP Code Phon e Number [facility] EKG [facility] EKG PROTIME (06/08/2013 6:45 EST) P athologist Signature Pro Time 9.9 9.5 - 13.1 [facility] secs LAB I.N.R. 0.9 0.9 - 1.1 [facility] Ratio LAB Comment: Moderate Intensity Coumadin INR = 2.0-3. 0 Adjustments in anticoagulant therapy dos e should be based upon the INR and NOT the Pro Ti me. Specimen Anatomical Collection Method Collection Time Receive d Time (Source) Location / / Volume Laterality Blood specimen 06/08/2013 6:45 06/08/2013 7:49 (specimen) EST EST Krishan Jones MD HEMATOLOGY & PF4 ORDERABLES Performing Organization Address City/[facility]/ZIP Code Phon e Number [facility] [address] [place] [address] SERVICES [facility] [address] [place] [address] HEMAGRAM (06/08/2013 6:45 EST) athologist Signature WBC 5.70 4.0 - 12.4 [facility] K/cmm LAB RBC 4.35 3.86 - 5.04 [facility] M/cmm LAB Hemoglobin 13.7 11.6 - 15.2 [facility] gm/dl LAB HCT 40.1 34.9 - 44.4 [facility] % LAB MCV 92 81 - 98 fl [facility] MCH 31.5 26.7 - 33.3 [facility] pg LAB MCHC 34.2 32.1 - 35.9 [facility] gm/dl LAB PLT 313 141 - 320 [facility] K/cmm LAB RDW-CV 12.7 11.7 - 14.6 [facility] % LAB Specimen Anatomical Collection Method Collection Time Receive d Time (Source) Location / / Volume Laterality Blood specimen 06/08/2013 6:45 06/08/2013 7:49 (specimen) EST EST Krishan Jones MD HEMATOLOGY & PF4 ORDERABLES Performing Organization Address City/[facility]/ZIP Code Phon e Number [facility] [address] [place] [address] SERVICES [facility] [address] [place] [address] ELECTROLYTES (06/08/2013 6:45 EST) P athologist Signature Sodium 141 136 - 145 [facility] mEq/L LAB Potassium 4.2 3.5 - 5.0 [facility] mEq/L LAB Chloride 103 96 - 110 [facility] mEq/L LAB CO2 29 24 - 32 [facility] mEq/L LAB Specimen Anatomical Collection Method Collection Time Receive d Time (Source) Location / / Volume Laterality Blood specimen 06/08/2013 6:45 06/08/2013 7:49 (specimen) EST EST Krishan Jones MD CHEMISTRY & BLOOD GAS ORDERA BLES Performing Organization Address City/[facility]/ZIP Code Phon e Number [facility] [address] [place] [address] [facility] [address] [place] [address] CREATININE (06/08/2013 6:45 EST) P athologist Signature Creatinine 0.72 0.52 - [facility] 1.04 mg/dl LAB GFR, Calculated >60 >60 [facility] ml/min/1.7 LAB 3m2 Specimen Anatomical Collection Method Collection Time Receive d Time (Source) Location / / Volume Laterality Blood specimen 06/08/2013 6:45 06/08/2013 7:49 (specimen) EST EST Krishan Jones MD CHEMISTRY & BLOOD GAS ORDERA BLES Performing Organization Address City/[facility]/ZIP Code Phon e Number [facility] [address] [place] [address] SERVICES [facility] [address] [place] [address] BUN (06/08/2013 6:45 EST) P athologist Signature BUN 17 10 - 26 [facility] mg/dl LAB Specimen Anatomical Collection Method Collection Time Receive d Time (Source) Location / / Volume Laterality Blood specimen 06/08/2013 6:45 06/08/2013 7:49 (specimen) EST EST Krishan Jones MD CHEMISTRY & BLOOD GAS ORDERA BLES Performing Organization Address City/[facility]/ZIP [facility] Phon e Number [facility] [address] [place] [address] [facility] [address] [place] [address] documented in this encounter Visit Diagnoses Diagnosis SVT (supraventricular tachycardia) (HCC- CMS) (HCC) - Primary Other specified cardiac dysrhythmias documented in this encounter Administered Medications Inactive Administered Medications - up to 3 most recent administrations Medication Order MAR Action Action Date Dose Rate Site ketOROLAC (TORADOL) injection 15 mg Given 06/08/2013 13:31 EST 15 mg 15 mg, intravenous, EVERY 6 HOURS PRN, 1 dose, Starting on Thu06/08/13 at 1304, Until Thu06/08/13 at 1331, Pain sodium chloride 0.9 % (NS) Rate Documented 06/08/2013 13:20 EST 30 mL/hr 30 mL/hr infusion 30 mL/hr, intravenous, CONTINUOUS, Starting on Thu06/08/13 at 0645, Until Thu06/08/13 at 1841, Routine, Preprocedure documented in this encounter Historical Medications This list may reflect changes made after this encounter. Medication Sig Dispensed Refills Start Date End Date MV,CA,MIN/FA/HERBAL NO.157 Take by mouth. 0 (ESTROVEN MAXIMUM STRENGTH ORAL) magnesium oxide (MAG-OX) Take 500 mg by mouth 0 400 mg tablet daily. added in this encounter Active and Recently Administered Medications Times are shown in EST. Continuous Medication Order 06/06/2013 06/07/2013 06/08/2013 sodium chloride 0.9 % (NS) infusion (CANCELED) 0645 (Due)1320 (Rate Documented - Provider: Shwetha Tejeda RN) at 30 mL/hr, 30 mL/hr, intravenous, CONT INUOUS, Starting Thu06/08/13 at 0645, Until Thu06/08/13 at 1841, Routine PRN Medication Order 06/06/2013 06/07/2013 06/08/2013 ketOROLAC (TORADOL) injection 15 mg (COMPLETED) 1331 (Given - Provider: Shwetha Tejeda RN) 15 mg, intravenous, EVERY 6 HOURS PRN, 1 dose, Starting Thu06/08/13 at 1304, Until Thu06/08/13 at 2359, Pain documented in this encounter Orders Medications Ordered That Might Not Have Count Last Ord ered Date First Ordered Date Been Administered acetaminophen (TYLENOL) tablet 650 mg 1 06/08/2013 fentaNYL citrate (PF) 50 mcg/mL injection 4 2012 heparin 1,000 unit/mL injection 1 06/08/2013 isoproterenol (ISUPREL) 0.2 mg/mL 1 06/08/2013 injection ketOROLAC (TORADOL) 30 mg/mL (1 mL) 1 06/08/2013 injection lidocaine 10 mg/mL (1 %) injection 1 06/08/2013 midazolam (VERSED) 1 mg/mL injection 3 06/08/2013 Nursing Count Last Ordered Date First Ordered Date BEDREST 1 06/08/2013 CARDIAC MONITORING 1 06/08/2013 CHANGE IV TO SALINE LOCK 1 06/08/2013 CONTRAINDICATION TO ANTICOAGULATION 1 06/08/2013 THERAPY INSERT PERIPHERAL IV 1 06/08/2013 PATIENT AT LOW RISK FOR VTE: RISK OF 1 06/08/2013 MECHANICAL PROPHYLAXIS OUTWEIGHS VITAL SIGNS 1 06/08/2013 Admission Count Last Ordered Date First Ordered Date STATUS: OUTPATIENT MEDICAL OP BED/SERVICES 1 06/08 STATUS: OUTPATIENT OBSERVATION SERVICES 1 06/08/20 13 Transfer Count Last Ordered Date First Ordered Date NON-TEACHING SERVICE 1 06/08/2013 NOTIFY PPS OF DISCHARGE COMPLETE 1 06/08/2013 Discharge Count Last Ordered Date First Ordered Date DISCHARGE PATIENT 1 06/08/2013 documented in this encounter Care Teams Toilet Products Molder Relationship Specialty Start Date End Date Ariane Wayne MD PCP - General 06/07/13 documented as of this encounter
--- OUTSIDE RECORDS SUMMARY | 2022-05-20 08:23 | XMS_ITS | Encounter Summary ---
:1955 Author Organization [facility] Address [address] [place] [address] Care Team Providers Name Role Phone Chu Wayne MD Primary Care Provider Unavailable Encounter Details Date Type Department Care Team Description 02/09/2017 Results Only [facility] Pepe Alvarado, [address] [place] [address] [place] [address] (Wo rk) Social History Tobacco Use Types Packs/Day Years Used Date Smoking Tobacco: Former Alcohol Use Standard Drinks/Week Comments Yes 0 (1 standard drink = 0.6 oz pure alcoho l) 1-2 glasses wine/evening Sex Assigned at Date Recorded Not on file documented as of this encounter Plan of Treatment Not on filedocumented as of this encounter Procedures Procedure Name Priority Date/Time Associated Diagnosis Comme [facility] SURGICAL PATHOLOGY Routine 02/09/2017 18:02 Resul ts for this EDT procedure are i n the results section. documented in this encounter Results SURGICAL PATHOLOGY (02/09/2017 18:02 EDT) Component Value Ref Test Analysis Performed At [facility] Method Time Signature Pathology SURGICAL PATHOLOGY REPORT [facility] Report: Reports generated via electronic interface contain origina l data; CENTER however they are lacking the format of the original report. LABORATORY Caution should be taken when reading/interpreting unformat zenon reports. SERVICES Name: ? ALLYSON KURTZ ? Accession #: ? [id number] ? : ? 1955 (Age: [age]) ??F ? Collect Date: ? 02/09/2017 ? Location: ? [facility] ? Receive Date: ? 02/09/2017 ? Provider: PEPE PEACE MD Copy to: LEXUS STUART MD ? Final Pathologic Diagnosis: A. COLON, CECUM AND ASCENDING, BIOPSY: - Colonic mucosa with no specific pathologic features. B. COLON, TRANSVERSE, BIOPSY: - Colonic mucosa with no specific pathologic features. C. COLON, DESCENDING, BIOPSY: - Colonic mucosa with no specific pathologic features. D. COLON, SIGMOID, BIOPSY: - Colonic mucosa with no specific pathologic features. Document reviewed and electronically signed by: JULIAN COLNI MD Report ??Date: 02/12/2017 10:21 By the signature above, the attending physician certifies th at he/she has personally conducted a gross and/or microscopic examin ation of the described specimens and rendered or confirmed the above diagnosis. Specimen(s) Received: A. ??Cecum and ascending colon B. ??Transverse colon C. ??Descending colon D. ??Sigmoid Clinical History: Diarrhea x1 month Gross Description: A. ?Received in formalin labelled with proper patie nt identification (initials C, P) and cecum a nd ascending colon are three pink-fuller tissues (0.3 x 0.2 x 0.1 cm to 0.3 x 0.2 x 0.2 cm). Entirely submitted in block A1. B. ?Received in formalin labelled with proper patie nt identification (initials C, P) and transverse colon are four pink-fuller tissues (0.3 x 0.2 x 0.1 cm to 0.6 x 0.2 x 0.1 cm). Entirely submitted in block B 1. C. ?Received in formalin labelled with proper patie nt identification (initials C, P) and descending colon are four pink-fuller tissues (0.3 x 0.2 x 0.1 cm to 0.7 x 0.2 x 0.1 cm). Entirely submitted in block C 1. D. ?Received in formalin labelled with proper patie nt identification (initials C, P) and sigmoid are six pink-fuller t issues (0.2 x 0.2 x 0.2 cm to 0.5 x 0.3 x 0.1 cm). Entirely submitted in blocks D1 and D2. MIKE Corona (ASCP) 02/10/2017 8:51 AM End of Report Specimen Anatomical Collection Method Collection Time Receive d Time (Source) Location / / Volume Laterality 02/09/2017 18:02 02/09/2017 EDT 18:02 EDT Pepe Peace MD PATHOLOGY ORDERABLES Performing Organization Address City/State/ZIP Code Phon e Number [facility] [address] [place] [id number] SERVICES documented in this encounter Visit Diagnoses Not on filedocumented in this encounter Care Teams Casualty Claims Supervisor Relationship Specialty Start Date End Date Chu Wayne MD PCP - General 06/07/13 documented as of this encounter
--- OUTSIDE RECORDS SUMMARY | 2022-05-20 08:23 | XMS_ITS | Encounter Summary ---
:1955 Author Organization [facility] Address [address] [place] [address] Care Team Providers Name Role Phone Chu Wayne MD Primary Care Provider Unavailable Encounter Details Date Type Department Care Team Description 10/09/2021 Lab Requisition [facility] Outr Resulting Lab, Pathology & Laboratory Provider [facility] [address] [place], [place] [address] Social History Tobacco Use Types Packs/Day Years Used Date Smoking Tobacco: Never Assessed Sex Assigned at Date Recorded Not on file documented as of this encounter Plan of Treatment Not on filedocumented as of this encounter Procedures Procedure Name Priority Date/Time Associated Diagnosis Comme nts FOLATE Routine 10/08/2021 8:10 EDT Results for this procedure are i n the results section . documented in this encounter Results FOLATE (10/08/2021 8:10 EDT) athologist Signature Folate 11.0 See Note 10/09/2021 [facility] ng/mL 22:26 EDT [facility] SERVICES Comment: Reference Ranges for Folate: Deficient: ?< 3.4 ng/mL Indeterminate: ??3.4 - 5.4 ng/mL Normal: ? > 5.4 ng/mL The results of this assay can be falsely elevated due to the consumption of Biotin. Specimen Anatomical Collection Method Collection Time Receive d Time (Source) Location / / Volume Laterality Blood VENOUS BLOOD / 10/08/2021 8:10 10/09/2021 Unknown EDT 21:20 EDT Provider Outr Resulting Lab CHEMISTRY & BLOOD GAS JUAN PRIETO Performing Organization Address City/State/ZIP Code Phon e Number [facility] [address] [place] [address] SERVICES documented in this encounter Visit Diagnoses Not on filedocumented in this encounter Care Teams Sub Acute Care Nurse Relationship Specialty Start Date End Date Chu Wayne MD PCP - General 06/07/13 documented as of this encounter
--- OUTSIDE RECORDS SUMMARY | 2022-05-20 08:24 | XMS_ITS | Encounter Summary ---
:1955 Author Organization [facility] [place] [address] Care Team Providers Name Role Phone Breanna Cortez MD Primary Care Provider Encounter Details Date Type Department Care Team Description 07/08/2021 Office Visit Dermatology at [facility] Solar [facility] entigo; Juan PETERSON [place] (actinic keratosis); [address] Nevus Sourav B DERMATOLOGY [place], [place] [id number] [phone] Social History Tobacco Use Types Packs/Day Years Used Date Smoking Tobacco: Never Smokeless Tobacco: Never Alcohol Use Standard Drinks/Week Comments Yes 7 (1 standard drink = 0.6 oz pure alcoho l) Sex Assigned at Date Recorded Not on file documented as of this encounter Progress Notes Patrick Villafana MD - 07/08/2021 11:30 AM EST Problem: 1. Repeat 2-year skin checkup 2. History of nonmelanoma skin cancers in her parents Patient follows up for a 2-year repeat skin checkup. She has been doing well. She has not noted any new lesions of concern. She is spending time between [place] [place] and a place in [place]. She occasionally notes some roughness of the upper cutaneous lip Physical examination was a pleasant 65-year-old woman who has a benign examination of the scalp the face the neck the chest the back the hands on forearms thighs and calves. She has only minimal visible photodamage. She has very even pigmentation and very minimal solar elastotic damage. She has some mi ld actinic damage of the upper cutaneous lip. Assessment plan: Actinic keratoses mild, upper cutaneous lip 1. Begin tretinoin 0.025% cream apply thin layer q. OHS to upper cutaneous lip dispense 20 g with 3 refills Benign skin examination 1. Patient reassured that overall benign skin examination 2. Continue sun avoidance precautions 3. Return to clinic another 2 years for repeat check. Sooner for new lesions of concern CC: Breanna Cortez MD documented in this encounter Plan of Treatment Upcoming Encounters Date Type Specialty Care Team Description 07/09/2023 Office Visit Dermatology Patrick Villafana MD [address] [facility] DERMATOLOGY [place], [place] [address] (Wo rk) documented as of this encounter Visit Diagnoses Diagnosis Solar lentigo Other dyschromia AK (actinic keratosis) Actinic keratosis Nevus Benign neoplasm of skin, site unspecifie d documented in this encounter Care Teams Voice Systems Engineer Relationship Specialty Start Date End Date Breanna Cortez MD PCP - General 03/06/[address] [place] [address] [address] [facility] [address] [place] [address] documented as of this encounter
--- OUTSIDE RECORDS SUMMARY | 2022-05-20 08:24 | XMS_ITS | Encounter Summary ---
:1955 [place] [address] Care Team Providers Name Role Phone Breanna Cortez MD Primary Care Provider Reason for Visit Auth/Cert - Closed Specialty Diagnoses / Procedures Referred By Contact Refer red To Contact Diagnoses Contusion of unspecified thigh, subsequent encounter right thigh deformity Procedures PRO SUCT LANDON LIPECTOMY, LOW EXTREM PRO TISSUE GRAFTS, OTHER (E.G. AUTOLOGOUS FAT GRAFT) SUCTION ASSISTED LIPECTOMY, LOWER EXTREMITY Referral ID Status Reason Start Date Expiration Date Visits Requ ested Visits Authorized [id number] Closed 1 1 Encounter Details Date Type Department Care Team Description 05/29/2015 Anesthesia Event Outpatient Surgery Dillon Mcduffie MD [facility] [place] [address] Alvord Enedina Christina MD [facility] [place] [address] [facility] [place] [address] Anesthesia Record Procedure Summary Procedure Name Responsible Anesthesia Start Anesthesia Stop Time Anesthesiologist Time SUCTION ASSISTED Carito Mcduffie MD 05/29/15 1358 05/29/15 1557 LIPECTOMY, LOWER EXTREMITY [facility] (Right: Thigh) Events Date Time Event Comment 05/29/2015 1357 1358 Start 1401 AN Verify 1401 An Start Data 1405 An Induction 1406 An Intubation 1413 Anesthesia Ready 1414 Handoff Intra-procedure anesthesia care was transferred afte r review of the patient's history, current anesthetic/surgical status and plan, accord ing to the ANES Provider Handoff Christiana Morrell to Sushant 1551 Extubation/LMA Out 1552 an stop data 1557 Recovery or ICU Handoff Patient care was transferred to the destination unit staff after review of the patient's medica l history, current anesthetic/surgi annabel status and plan, according to the Provider Handoff Checklist. 1557 Stop Name Total Propofol 150 mg Propofol INF 750.3 mg fentaNYL 200 mcg Midazolam 2 mg IV Lidocaine 60 mg Dexamethasone 4 mg Ondansetron 8 mg ceFAZolin (ANCEF) 2 gram/50 mL infusion 2 g Ketorolac 30 mg lactated ringers infusion 1,000 mL 700 mL Agents Name O2 Air N2O Sevoflurane (et) Blood No blood administrations on file. Lines, Drains, and Airways Type Details Placement Removal Drain/Device Site 05/29/15; Right; 05/29/15 0000 by (lateral); thigh; Shilpi Worthy RN collapsible closed device Wound 05/02/15; 1518; thigh; 05/02/15 1518 by 03/03/22 1715 by puncture; from seroma; Sathya Lambert D ierdre L 03/03/22 (LDA cleanup Rachid Burks RN utility RA#[id number]); 1715 (LDA cleanup utility RA#[id number]) Incision 05/29/15; thigh; 03/03/22 05/29/15 0000 by 03/03 1715 by (LDA cleanup utility Shilpi Worthy RN Mulle r, Dierdre L RA#[id number]); 1715 (LDA cleanup utility RA#[id number]) PIV 05/29/15; 1206; median 05/29/15 1206 by 05/29/15 1731 by cubital vein right Shiv Lewis Kate L, RN (antecubital fossa); etio-zgb-iwizbn catheter system; 20 gauge; no longer indicated, catheter intact, removed per policy/procedure; 05/29/15; 1731 Supraglottic Mask Ventilation: Easy 05/29/15 1406 by 05/29/15 1551 by (1); LMA Type: Unique; Priti Ho CRNA Whi tney, Heather S, LMA Size: 4; Inserted by: PAKO Mallory CRNA documented in this encounter Social History Tobacco Use Types Packs/Day Years Used Date Smoking Tobacco: Never Smokeless Tobacco: Never Alcohol Use Standard Drinks/Week Comments Yes 7 (1 standard drink = 0.6 oz pure alcoho l) Sex Assigned at Date Recorded Not on file documented as of this encounter OR Notes Anesthesia Postprocedure Evaluation - Carito Mcduffie MD - 05/29/2015 5:32 PM EST [facility] Department of Anesthesiology Post-procedure Note Patient: Allyson Cesar Procedure Summary Date Anesthesia Start Anesthesia Stop Room / Location 05/29/15 1358 1557 [facility] OR [address] [place] [address] [facility] Procedure Diagnosis Surgeon Responsible Provider SUCTION ASSISTED LIPECTOMY, LOWER EXTREMITY (Right Thigh); INCISION & DRAINAGE HEMATOMA, SEROMAOR FLD. COLLECTION, LOWER EXTREMITY (Right ); ULTRASONIC GUIDANCE FOR NEEDLE PLACEMENT (Right ) No diagnosis on file. Divine Root MD Herrick, Michael D, MD (right thigh deformity) Last (1hr) Vitals: BP Temp Pulse 60 (05/29/15 1656) Resp SpO2 100 % (05/29/15 165) Patient Location: PACU/[facility] Level of Consciousness: Awake and Alert Pain Management: Satisfactory Analgesia PONV: None Cardiovascular Status: At Baseline and Hemodynamically Stable Respiratory Status: At Baseline and Room Air Postoperative Fluid Status: Intravascular EUvolemia Possible Anesthetic Complications: NONE apparent at time of evaluation Final Primary Anesthesia Type: General (The anesthetic type performed was the same as planned.) Comments: Pain improved and was doing well at discharge CARITO MCDUFFIE MD Anesthesia Preprocedure Evaluation - Kristian Morrell DO - 05/29/2015 1:57 PM EST Pre-Anesthesia Evaluation for: Allyson Cesar a 59 y.o. female. Procedure(s): SUCTION ASSISTED LIPECTOMY, LOWER EXTREMITY TISSUE GRAFT, PARATENON, FAT, DERMIS (OTHER) Patient Active Problem List Diagnosis ??? Traumatic hematoma of thigh with residual deformity ??? Spider angioma Past Medical History Diagnosis Date ??? Spontaneous pneumothorax 2000 right side ??? Uterine bleeding 2000 ??? SVT (supraventricular tachycardia) 2012 ??? Skiing accident 09/10/2014 fractured pubis ramis and L1 compression Past Surgical History Procedure Laterality Date ??? Lung surgery 2000 ??? Partial hysterectomy 2000 partial vaginal ??? Ventricular ablation surgery 2012 ??? Hematoma,seroma, fluid collection incision and drainage lower extremity Right 11/22/2014 History Substance Use Topics ??? Smoking status: Never Smoker ??? Smokeless tobacco: Never Used ??? Alcohol Use: 4.2 oz/week 7 Not specified per week History Drug Use No Allergies Allergen Reactions ??? Sulfa (Sulfonamide Antibiotics) Medications: MAR and/or home medications have been reviewed. Physical Exam: Filed Vitals: 05/29/15 1311 BP: 132/69 Pulse: 69 Temp: 37 ??C (98.6 ??F) Resp: 16 Body mass index is 22.47 kg/(m^2). Weight - Scale: 61.236 kg (135 lb) Airway Assessment: Mallampati: II TM distance: >3 FB Neck ROM: full Cardiovascular Assessment: Rhythm: regular Pulmonary Assessment: breath sounds clear to auscultation Dental Assessment: - normal exam Misc Assessment: Patient is wearing No contact(s). IV access: Peripheral line Anesthesia Plan: ASA 2 General, with a(n) intravenous induction 59 y/o female for Lipectomy R leg s/p injury No hx of difficulty w anesthesia (has had nausea related to Percocet) Denies CP/SOB/PND/Orthopnea/Active SUNG ss/Palp/Syncope Plan GA/SHAHRAM/VA and IV maint/P op PACU care and IV pain control w local provided by surgical service.Antiemetics IC discussed and obtained Region - Other Informed Consent: Anesthetic plan and risks discussed with patient. Plan discussed with HOSPICE COORDINATOR. PAT Staff Note documented in this encounter Plan of Treatment Upcoming Encounters Date Type Specialty Care Team Description 07/09/2023 Office Visit Dermatology Patrick Villafana MD [address] DERMATOLOGY [place], [place] [address] (Wo rk) documented as of this encounter Visit Diagnoses Not on filedocumented in this encounter Administered Medications Inactive Administered Medications - up to 3 most recent administrations Medication Order MAR Action Action Date Dose Rate Site ceFAZolin (ANCEF) 2 gram/50 mL Given 05/29/2015 2:13 PM EST 2 g infusion 1 dose, Starting on Thu05/29/15 at 1324, Until Thu05/29/15 at 1413, OLIVIER BOURGON: cabinet override dexamethasone (DECADRON) injection Given 05/29/2015 2:08 PM EST 4 mg Intravenous, PRN, Starting on Thu05/29/15 at 1408, Until Thu05/29/15 at 1557, Anesthesia Intra-op, Routine fentaNYL 50 mcg/mL multi-dose injection Given 05/29/2015 3:15 PM EST 50 mcg Intravenous, PRN, Starting on Thu05/29/15 at 1358, Until Thu05/29/15 at 1557, Pain, Anesthesia Intra-op, Routine Given 05/29/2015 3:04 PM EST 25 mcg Given 05/29/2015 2:59 PM EST 25 mcg ketorolac (TORADOL) injection Given 05/29/2015 3:35 PM EST 30 mg PRN, Starting on Thu05/29/15 at 1535, Until Thu05/29/15 at 1557, Pain, Anesthesia Intra-op, Routine lactated ringers infusion 1,000 mL New Bag 05/29/2015 1:58 PM EST 1,000 mL, at 100 mL/hr, Intravenous, CONTINUOUS, Starting on Thu05/29/15 at 1345, Until Thu05/29/15 at 1732, Day of Surgery (Day of Procedure) lidocaine (PF) (XYLOCAINE) 100 mg/5 mL (2 %) Given 5 2:05 PM EST 60 mg injection Intravenous, PRN, Starting on Thu05/29/15 at 1405, Until Thu05/29/15 at 1557, Anesthesia Intra-op, Routine midazolam (PF) (VERSED) 1 mg/mL multi-dose Given 05/29/2015 1:58 PM EST 2 mg injection Intravenous, PRN, Starting on Thu05/29/15 at 1358, Until Thu05/29/15 at 1557, Sleep, Anesthesia Intra-op, Routine ondansetron (ZOFRAN) injection Given 05/29/2015 3:35 PM EST 8 mg Intravenous, PRN, Starting on Thu05/29/15 at 1535, Until Thu05/29/15 at 1557, Nausea, Anesthesia Intra-op, Routine propofol (DIPRIVAN) 10 mg/mL bolus injection Given 2:05 PM EST 150 mg (Anesthesia) Intravenous, PRN, Starting on Thu05/29/15 at 1405, Until Thu05/29/15 at 1557, Anesthesia Intra-op propofol (DIPRIVAN) infusion New Bag 05/29/2015 2:08 PM 150 mcg/kg/min 54.9 mL/hr Intravenous, CONTINUOUS PRN, EST Starting on Thu05/29/15 at 1408, Until Thu05/29/15 at 1557, Anesthesia Intra-op, Routine documented in this encounter Care Teams Commercial Real Estate Manager Relationship Specialty Start Date End Date Breanna Cortez MD PCP - General 03/06/[address] [place] [address] documented as of this encounter
--- OUTSIDE RECORDS SUMMARY | 2022-05-20 08:24 | XMS_ITS | Encounter Summary ---
:1955 Author Organization [facility] Address [address] [place] [address] Care Team Providers Name Role Phone Breanna Cortez MD Primary Care Provider Reason for Visit Reason Comments Follow-up R THIGH RAMOS GABRIELLE LEYVAI ON DOI 09/10/14 Consultation (Routine) - Closed Specialty Diagnoses / Procedures Referred By Contact Refer red To Contact Orthopaedics Diagnoses Ramos Gabrielle lesion Divine Root MD [facility] 3c [facility] [address] [place] [address] [place] [address] Referral ID Status Reason Start Date Expiration Date Visits V isits Requested Authorized [id number] Closed Consult, 09/24/2015 09/23/2016 1 1 Test & Treat Encounter Details Date Type Department Care Team Description 10/04/2015 Office Visit Orthopaedics at [facility] Robert Evangelista, Traumatic hematoma of [facility] thigh, right, [facility] [place] [address] [facility] [phone] ORTHOPAEDIC SURGERY [place] [address] Social History Tobacco Use Types Packs/Day Years Used Date Smoking Tobacco: Never Smokeless Tobacco: Never Alcohol Use Standard Drinks/Week Comments Yes 7 (1 standard drink = 0.6 oz pure alcoho l) Sex Assigned at Date Recorded Not on file documented as of this encounter Last Filed Vital Signs Vital Sign Reading Time Taken Comments Blood Pressure 121/67 10/04/2015 8:37 AM EDT Pulse 63 10/04/2015 8:37 AM EDT Temperature - - Respiratory Rate - - Oxygen Saturation - - Inhaled Oxygen Concentration - - Weight 61.9 kg (136 lb 6.4 oz) 10/04/2015 8:37 AM EDT Height 163.8 cm (5' 4.5) 10/04/2015 8:37 AM EDT Body Mass Index 23.05 10/04/2015 8:37 AM EDT documented in this encounter Progress Notes Britt Andrew, MIKE - 10/04/2015 9:01 AM EDT Date of Visit: 10/04/15 Staff: CC: Right thigh mass- s/p trauma 2014. HPI: 59 y.o. Female referred from Dr. Sánchez. Ms. Cesar sustained a trauma last year during a skiing incident. She sustained a pelvic fracture in addition to a injury to the soft tissues of the thigh. She has been followed for this and has undergone multiple IR drains in addition to a drain left intact for 6 weeks around the time of Jun/Jul. She had capsular debridement along with infusion of tetracycline to having the area close down. She has additionally undergone liposuction to even out the soft tissue in the area of the right buttock/lateral thigh. She states it does feel sore at times, but rarely limits her. She mostly gets discomfort with pressure or more aggressive activity. She states it overall is getting smaller in size. Denies any recent fever or chills, but states around JUN she did, but [place] work up. Past Surgical History Procedure Laterality Date ??? Lung surgery 2000 ??? Partial hysterectomy 2000 partial vaginal ??? Ventricular ablation surgery 2012 ??? Hematoma,seroma, fluid collection incision and drainage lower extremity Right 11/22/2014 ??? Pro suct daylin lipectomy, low extrem Right 05/29/2015 SUCTION ASSISTED LIPECTOMY, LOWER EXTREMITY performed by Divine Root MD at [facility] ??? Pro drainage of hematoma/fluid Right 05/29/2015 INCISION & DRAINAGE HEMATOMA, SEROMA OR FLD. COLLECTION, LOWER EXTREMITY performed by Divine Root MD at [facility] ??? Prg sono guide needle biopsy Right 05/29/2015 ULTRASONIC GUIDANCE FOR NEEDLE PLACEMENT performed by Divine Root MD at [facility] Past Medical History Diagnosis Date ??? Spontaneous pneumothorax 2001 right side ??? Uterine bleeding 2000 ??? SVT (supraventricular tachycardia) 2012 ??? Skiing accident 09/10/2014 fractured pubis ramis and L1 compression Patient Active Problem List Diagnosis Code ??? Spider angioma I78.1 ??? Traumatic hematoma of thigh with residual deformity S70.10XA Denies fever or chills. Denies numbness or tingling. Denies CP, SOB or cough. Denies GI symptoms. History Social History ??? Marital Status: Spouse Name: N/A Number of Children: N/A ??? 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 Smoking status: Never Smoker ??? Smokeless tobacco: Never Used ??? Alcohol Use: 4.2 oz/week 7 Standard drinks or equivalent per week ??? Drug Use: No ??? Sexual Activity: Not on file Other Topics Concern ??? Not on file Social History Narrative Exam: alert and oriented x 3. NAD sitting in chair. Fullness about the right lateral thigh/buttock- non tender Incision about the thigh well healded Adherent area posterior thigh. No erythema Gentle ROM of hip painless. LE warm and dry. Xray: MRI shows fluid collection and injury consistent with ramos-trisha lesion. A/P: Right thigh injury. Patient seen with Dr. Evangelista. At this time recommend no treatment at this time and avoid all invasive procedures to avoid potential infection. Would benefit from compression (which she is doing). She should continue with activity as tolerated. Follow up prn Discussed s/s of infection. Robert Evangelista MD - 10/04/2015 8:58 AM EDT I have seen the patient and reviewed Britt Andrew [facility] history/physical and I agree with the detailsas written. The assessment and plan were formulated in discussion with me and I agree with them as documented. She is a ronel 59-year-old female sustained a pelvic fracture with Briana Gabrielle lesion. This hasbeen drained multiple times by IR, I post suction by plastic surgery. She is sent here today by plastic surgery for further evaluation. Currently patient has no pain. Decreasing size of right buttock/la teral hip fluid collection. No signs of infection. All incisions are well- healed. At this point, recommended continued's SPANXs usage. Suspect that this will continue to decrease in size. There is small risk of infection. Recommended against any other surgical intervention at this time. Recommended against any type of aspiration as well. We'll see patient back as needed. Robert Evangelista MD, MS 10/04/2015 documented in this encounter Plan of Treatment Upcoming Encounters Date Type Specialty Care Team Description 07/09/2023 Office Visit Dermatology Patrick Villafana MD [address] [facility] DERMATOLOGY [place], [place] [address] (Wo rk) Scheduled Referrals Name Type Priority Associated Order Schedule Diagnoses Referral to Outpatient Referral Routine [facility] Ordere d: Orthopaedics lesion 09/24/2015 documented as of this encounter Visit Diagnoses Diagnosis Traumatic hematoma of thigh, right, subs equent encounter documented in this encounter Care Teams Christmas Bell Ringer Relationship Specialty Start Date End Date Breanna Cortez MD PCP - General 03/06/[address] [place] [address] documented as of this encounter
--- OUTSIDE RECORDS SUMMARY | 2022-05-20 08:24 | XMS_ITS | Encounter Summary ---
:1955 Author Organization [facility] [place] [address] Care Team Providers Name Role Phone Lexus Cortez MD Primary Care Provider Reason for Referral Diagnostic Test (Routine) - Closed Specialty Diagnoses / Procedures Referred By Contact Refer red To Contact Radiology Diagnoses Seroma Alex Davis APRN Radiology Procedures IR all drainage procedures [facility] [place] [address] [place] [address] Referral ID Status Reason Start Date Expiration Date Visits V isits Requested Authorized [id number] Closed Specialty 05/04/2015 05/03/2016 1 1 Service Requested Reason for Visit Diagnostic Test (Routine) - Closed Specialty Diagnoses / Procedures Referred By Contact Refer red To Contact Radiology Diagnoses Seroma Alex Davis APRN Radiology Procedures IR all drainage procedures [facility] [place] [address] [place] [address] Referral ID Status Reason Start Date Expiration Date Visits V isits Requested Authorized [id number] Closed Specialty 05/04/2015 05/03/2016 1 1 Service Requested Encounter Details Date Type Department Care Team Description 05/04/2015 Hospital Encounter Radiology at [facility] Mac Becker, Seroma [facility] [place] [address] DIAGNOSTIC RADIO [place], [place] [address] (Wo rk) Social History Tobacco Use Types Packs/Day Years Used Date Smoking Tobacco: Never Smokeless Tobacco: Never Alcohol Use Standard Drinks/Week Comments Yes 7 (1 standard drink = 0.6 oz pure alcoho l) Sex Assigned at Date Recorded Not on file documented as of this encounter Medications at Time of Discharge Medication Sig Dispensed Refills Start Date End Date CALCIUM CARBONATE Take 500 mg by mouth 0 (CALCIUM 500 ORAL) nightly. MAGNESIUM ORAL Take 400 mg by mouth 0 nightly. Cholecalciferol, Vitamin Take 3,000 Units by 0 D3, (VITAMIN D) 1,000 mouth. unit Capsule SOY ISOFLA/BLK COHOSH/MAG Take by mouth. 0 BARK (ESTROVEN ORAL) calcium carbonate 648 mg Take 650 mg by mouth 0 05/09/2015 calcium Tablet 3 times daily (with meals). Ibuprofen 200 mg Capsule Take by mouth. 0 05/29/2015 documented as of this encounter Progress Notes Alex Davis, JOSE - 05/03/2015 9:29 AM EDT PRE-PROCEDURE VIR NOTE Date of : 1955 Age: 59 y.o. PCP: LEXUS CORTEZ MD (General) Referring Physician (if different): Dk Indication: ? Persistent fluid collection s/p trauma Planned Procedure: 1) US reevaluation of right thigh seroma 2) Possible US guided RIGHT thigh drain placement Chief Complaint/Diagnosis: Per Dr. Dk Kurtz 59 y.o. female patient with right thigh contour deformity secondary to trauma. I recommend obtaining an ultrasound to r/o a fluid pocket. I discussed surgical intervention of liposuction and fat grafting along the tethered scar if no fluid collection is present vs. Incision for capsule excision and drain placement if chronic fluid collection is present. We discussed that some permament deformity will be present despite either option. I will follow up with her after the ultra sound. Patient underwent aspiration of asymptomatic thigh seroma 05/02/15 (35cc serous fluid). Patient returns for US exam. If fluid has recurred, will consider possible drain placement, depending on size of collection. Pertinent Past Medical/Surgical History: Patient Active Problem List Diagnosis Code ??? Spider angioma I78.1 ??? Traumatic hematoma of thigh with residual deformity S70.10XA Allergies Allergen Reactions ??? Sulfa (Sulfonamide Antibiotics) Current Outpatient Prescriptions on File Prior to Encounter Medication Sig Dispense Refill ??? MAGNESIUM ORAL Take 400 mg by mouth nightly. ??? Cholecalciferol, Vitamin D3, (VITAMIN D) 1,000 unit Capsule Take 3,000 Units by mouth. ??? SOY ISOFLA/BLK COHOSH/MAG BARK (ESTROVEN ORAL) Take by mouth. ??? Ibuprofen 200 mg Capsule Take by mouth. ??? calcium carbonate 648 mg calcium Tablet Take 650 mg by mouth 3 times daily (with meals). No current facility-administered medications on file prior to encounter. Pertinent ROS: as per HPI Pertinent Family History: non contributory Social History: n/a Labs: No results found for: WBC, ANC, HCT, PLATELET, INR, BUN No results found for: ALKPHOS, AST, ALBUMIN, BILIDIR, BILITOT, ALT Physical Exam: Heart - RRR, no murmur Lungs- CTA ASA: II Mallampati Class: 2 Assessment / Plan: US evaluation of RIGHT thigh collection; possible RIGHT thigh drain placement Medications to discontinue: none Prophylactic antibiotic: None Planned access site / position: supine Clotilde Adorno RN - 05/03/2015 8:35 AM EDT ANGIO/VIR NURSING DATABASE Name: IAM KURTZ Date of : 1955 AGE 59 y.o. Address: [address] [place] [id number] (home) Mobile: Telephone Information: Referring Provider: Alex Davis PROCEDURE: right thigh seroma --aspiration vs drain placement Allergies Allergen Reactions ??? Sulfa (Sulfonamide Antibiotics) Pertinent PMH: Patient Active Problem List Diagnosis Code ??? Spider angioma I78.1 ??? Traumatic hematoma of thigh with residual deformity S70.10XA Pertinent PSH: Past Surgical History Procedure Laterality Date ??? Lung surgery 2001 ??? Partial hysterectomy 2000 partial vaginal ??? Ventricular ablation surgery 2012 ??? Hematoma,seroma, fluid collection incision and drainage lower extremity Right 11/22/2014 DATE PROCEDURE MEDS GIVEN 05/02/15 Right thigh aspiration Versed 2 mg IV, fentanyl 100 mcg IV Laboratory Results: No results found for: INR No components found for: PT/PTT No results found for: CREATININE No results found for: K Lab Results Component Value Date PLATELET 296 05/02/2015 Medications: Prior to Admission medications Medication Sig Start Date End Date Taking? Authorizing Provider CALCIUM CARBONATE (CALCIUM 500 ORAL) Take 500 mg by mouth nightly. PROVIDER, HISTORICAL MAGNESIUM ORAL Take 400 mg by mouth nightly. PROVIDER, HISTORICAL calcium carbonate 648 mg calcium Tablet Take 650 mg by mouth 3 times daily (with meals). PROVIDER, HISTORICAL Cholecalciferol, Vitamin D3, (VITAMIN D) 1,000 unit Capsule Take 3,000 Units by mouth. PROVIDER, HISTORICAL SOY ISOFLA/BLK COHOSH/MAG BARK (ESTROVEN ORAL) Take by mouth. PROVIDER, HISTORICAL Ibuprofen 200 mg Capsule Take by mouth. PROVIDER, HISTORICAL ++++ FOR OUTPATIENT SCAN'S: I have informed this patient that they require a motorcycle delivery driver to be present and in the building to drive them home after this procedure. In the absence of a motorcycle delivery driver, IR will not beable to perform this procedure and will need to reschedule. Pt verbalized understanding of these inst ructions during the pre-procedure education via phone. (initials) documented in this encounter Plan of Treatment Upcoming Encounters Date Type Specialty Care Team Description 07/09/2023 Office Visit Dermatology Patrick Villafana MD [address] [facility] DERMATOLOGY [place], [place] [address] (Wo rk) documented as of this encounter Procedures Procedure Name Priority Date/Time Associated Comments Diagnosis IR ALL DRAINAGE Routine 05/04/2015 8:23 AM Seroma Result s for this PROCEDURES EDT procedure are i n the results section. documented in this encounter Results IR all drainage procedures (05/04/2015 8:23 AM EDT) Anatomical Region Laterality Modality X-Ray Angiography Specimen (Source) Anatomical Location Collection Method / Collectio n Time Received Time / Laterality Volume Narrative 05/04/2015 10:20 AM EDT IR Procedure Note Procedure: ? US evaluation of the ri ght thigh History/indication: ??59 yr old F patien t with a right thigh deformity secondary to trauma. She was seen on where a fluid collection was identified in the posterior aspect of th e thigh; US guided aspiration yielded 35cc serous fluid. Patient retur ns for follow-up US exam. If fluid has recurred, will consider possible zehra in placement, depending on size of collection. Technique/Findings: ??US evaluation of t he posterior right thigh shows minimal fluid (insufficient for repeat a spiration or drain placement). The patient reports that she has been physic ally active and has experienced a significant decrease in discomfort. She has an appointment [facility] next week (05/09/2015). Attending: ?Shai Becker MD ? Mac Becker MD IMG IR ORDERABLES documented in this encounter Visit Diagnoses Diagnosis Seroma Seroma complicating a procedure documented in this encounter Care Teams Building Energy Consultant Relationship Specialty Start Date End Date Lexus Cortez MD PCP - General 03/06/[address] [place] [address] [address] [facility] [address] [place] [address] documented as of this encounter
--- OUTSIDE RECORDS SUMMARY | 2022-05-20 08:24 | XMS_ITS | Encounter Summary ---
:1955 Author Organization [facility] [place] [address] Care Team Providers Name Role Phone Breanna Cortez MD Primary Care Provider Reason for Visit Reason Comments Follow-up drain ck sp right thigh lipo &fat grafting 05/29 Encounter Details Date Type Department Care Team Description 06/20/2015 Office Visit Plastic Surgery at [place], Divine Beltran, Trau matic hematoma of thigh, right, subsequent encounter; [facility] MD Ronnell Anthony lesion [facility] [place] PLASTIC SURGERY [address] [place] [address] [phone] Social History Tobacco Use Types Packs/Day Years Used Date Smoking Tobacco: Never Smokeless Tobacco: Never Alcohol Use Standard Drinks/Week Comments Yes 7 (1 standard drink = 0.6 oz pure alcoho l) Sex Assigned at Date Recorded Not on file documented as of this encounter Patient Instructions Patient InstructionsCortney Arndt RN - 06/20/2015 2:29 PM EST Follow up in September. documented in this encounter Progress Notes Divine Root MD - 06/20/2015 11:28 AM EST Plastic Surgery Post Op Note Reason for visit: F/U status post procedure Date of surgery: 05/29/15 Procedure(s): Right thigh seroma (Reynaga Gabrielle lesion) evacuation and contouring Complications: None reported Pain: 07/15 HPI: Pt reports that her drain output remains around 25-30 cc per day, her output was trending downward before she had a clot release. She is leaving town on Thursday. Examination: Patient is alert, conversant, comfortable, ambulating Incision: CDI, healing well. Steri-strip removed and replaced. Thighs are symmetric on frontal view, she has residual asymmetry visible from the lateral view that is stable. Drain in place with serous output. (35 cc per day) Impression: Allyson Cesar is a 59 y.o. female who was seen today for follow-up after the above procedure. Please see the operative note for details. Her drain output remains 30-40 cc per day. Plan: 1. Doxycycline ordered from the pharmacy today and sclerotherapy to be performed today in clinic. Risks reviewed and all questions answered. I, Aretha Dunn, am acting as scribe for Dr Root. All work documented was performed by Dr Root. ???I performed the above scribed service and agree with the accuracy of the note?? DIVINE ROOT MD documented in this encounter Miscellaneous Notes Addendum Note - Cortney Arndt RN - 06/20/2015 2:29 PM EST Addended by: CORTNEY ARNDT on: 06/20/2015 02:29 PM Modules accepted: Orders, Medications documented in this encounter Plan of Treatment Upcoming Encounters Date Type Specialty Care Team Description 07/09/2023 Office Visit Dermatology Patrick Villafana MD [address] [place] [address] DERMATOLOGY [place], [place] [address] (Wo rk) documented as of this encounter Visit Diagnoses Diagnosis Traumatic hematoma of thigh, right, subs equent encounter Reynaga Gabrielle lesion Contusion of unspecified site documented in this encounter Administered Medications Inactive Administered Medications - up to 3 most recent administrations Medication Order MAR Action Action Date Dose Rate Site doxycycline injection Given 06/20/2015 2:18 PM 500 mg 20-Other (document 500 mg, Intravenous, EST in c omment section) ONCE, 1 dose, On Thu06/20/15 at 1445, Attach to 100mL of normal saline 0.9% Mini-Bag Plus, Routine, Indication for (Active or Suspected): Other (See comment) documented in this encounter Care Teams Fire Crew Specialist Relationship Specialty Start Date End Date Breanna Cortez MD PCP - General 03/06/15 [facility] [address] [place] [address] documented as of this encounter
--- OUTSIDE RECORDS SUMMARY | 2022-05-20 08:24 | XMS_ITS | Encounter Summary ---
:1955 Author Organization [facility] [place] [address] Care Team Providers Name Role Phone Breanna Cortez MD Primary Care Provider Reason for Referral Consultation (Routine) - Closed Specialty Diagnoses / Procedures Referred By Contact Refer red To Contact Orthopaedics Diagnoses Reynaga Gabrielle lesion Divine Root MD [facility] Orthopaedics [address] [place] [address] [place] [address] [place] [address] Referral ID Status Reason Start Date Expiration Date Visits V isits Requested Authorized [id number] Closed Consult, 09/24/2015 09/23/2016 1 1 Test & Treat Reason for Visit Reason Comments Follow Up Surgery s/p right thigh lipo and fat grafting 05/29/15 Encounter Details Date Type Department Care Team Description 09/24/2015 Office Visit Plastic Surgery at Divine Root More l [place] lesion; [facility] Traumatic hematoma of thigh, right, subs equent encounter [facility] [address] [place] PLASTIC SURGERY [address] [place] [address] [phone] Social History Tobacco Use Types Packs/Day Years Used Date Smoking Tobacco: Never Smokeless Tobacco: Never Alcohol Use Standard Drinks/Week Comments Yes 7 (1 standard drink = 0.6 oz pure alcoho l) Sex Assigned at Date Recorded Not on file documented as of this encounter Patient Instructions Patient InstructionsDivine Root MD - 09/24/2015 11:08 AM EDT Plan: 1. Orthopaedics consult 2. Follow up PRN for juvederm injections - arrive early for numbing cream documented in this encounter Progress Notes Divine Root MD - 09/24/2015 10:06 AM EDT Plastic Surgery Post Op Note Reason for visit: F/U status post procedure Date of surgery: 05/29/15 Procedure(s): Right thigh seroma (Reynaga Gabrielle lesion) evacuation and contouring Complications: None reported Pain: 07/15 HPI: Pt reports she is doing well. She was able to ski over the winter without difficulty. She feelsthat she still has a fluid pocket in the thigh, but it has improved in size. She is able to wear jeans and other clothes. She is also interested in discussing filler injections to her face. Examination: Patient is alert, conversant, comfortable, ambulating Scars are well healed Thighs are near symmetric on frontal view Residual asymmetry is visible from the lateral view. Impression: Allyson Cesar is a 59 y.o. female who was seen today for follow-up after the above procedure. Please see the operative note for details. She has some residual collection at her lateral thigh. She reports that she is able to live with the asymmetry at this time. If she wishes to pursue additional treatment for her Reynaga Gabrielle lesion, I recommended she consult with orthopaedics. We discussed filler injections to her malar region and lips. Plan: 1. Orthopaedics consult 2. Follow up PRN for juvederm injections - arrive early for numbing cream I, Aretha Dunn, am acting as scribe for Dr Root. All work documented was performed by Dr Root. ???I performed the above scribed service and agree with the accuracy of the note?? DIVINE ROOT MD documented in this encounter Plan of Treatment Upcoming Encounters Date Type Specialty Care Team Description 07/09/2023 Office Visit Dermatology Patrick Villafana MD [address] [place] [address] DERMATOLOGY [place], [place] [address] (Wo rk) Scheduled Referrals Name Type Priority Associated Order Schedule Diagnoses Referral to Outpatient Referral Routine Ronnell Gerardo d: Orthopaedics lesion 09/24/2015 documented as of this encounter Visit Diagnoses Diagnosis Reynaga Gabrielle lesion Contusion of unspecified site Traumatic hematoma of thigh, right, subs equent encounter documented in this encounter Care Teams Entry Level Mechanical Engineer Relationship Specialty Start Date End Date Breanna Cortez MD PCP - General 03/06/[address] [place] [address] documented as of this encounter
--- OUTSIDE RECORDS SUMMARY | 2022-05-20 08:24 | XMS_ITS | Encounter Summary ---
:1955 Author Organization [place] [address] Care Team Providers Name Role Phone Breanna Cortez MD Primary Care Provider Reason for Referral Diagnostic Test (Routine) - Closed Specialty Diagnoses / Procedures Referred By Contact Refer red To Contact Radiology Diagnoses Seroma Alex Davis APRN Radiology Procedures IR all drainage procedures [facility] Galindo [place] [address] [place] [address] Referral ID Status Reason Start Date Expiration Date Visits V isits Requested Authorized [id number] Closed Specialty 05/04/2015 05/03/2016 1 1 Service Requested Encounter Details Date Type Department Care Team Description 05/02/2015 Orders Only Vascular Interventional Miesha Davis APRN Seroma Radiology [facility] Laura talley [place] [address] [place] [address] [phone] (Wo rk) Social History Tobacco Use Types Packs/Day Years Used Date Smoking Tobacco: Never Smokeless Tobacco: Never Alcohol Use Standard Drinks/Week Comments Yes 7 (1 standard drink = 0.6 oz pure alcoho l) Sex Assigned at Date Recorded Not on file documented as of this encounter Plan of Treatment Upcoming Encounters Date Type Specialty Care Team Description 07/09/2023 Office Visit Dermatology Patrick Villafana MD [address] [facility] DERMATOLOGY [place], [place] [address] (Wo rk) documented as of this encounter Results IR all drainage procedures [...] Diagnoses Diagnosis Seroma Seroma complicating a procedure Seroma Seroma complicating a procedure documented in this encounter Care Teams Agency Service Representative Relationship Specialty Start Date End Date Breanna Cortez MD PCP - General 03/06/[address] [place] [address] documented as of this encounter
--- OUTSIDE RECORDS SUMMARY | 2022-05-20 08:24 | XMS_ITS | Encounter Summary ---
:1955 Author Organization [facility] [place] [address] Care Team Providers Name Role Phone Breanna [...] Expiration Date Visits Requ ested Visits Authorized [id number] Closed 1 1 Encounter Details Date Type Department Care Team Description 05/29/2015 Hospital Encounter MRI at [facility] Divine Root MD [facility] [address] [place] [address] PLASTIC SURGERY [phone] [place], [place] [address] (Wo rk) Social History Tobacco [...] Take by mouth. 0 BARK (ESTROVEN ORAL) oxyCODONE (ROXICODONE) 5 Take 1 tablet by 30 tablet 0 05/2906/06/2015 mg Tablet mouth every 4 hours as needed for Pain. documented as of this encounter Plan of Treatment Upcoming Encounters Date Type Specialty Care Team Description 07/09/2023 Office Visit Dermatology Patrick Villafana MD [address] [facility] DERMATOLOGY [place], [place] [address] (Wo rk) documented as of this encounter Procedures Procedure Name Priority Date/Time Associated Diagnosis Comme nts MRI LOWER EXTREMITY Routine 05/29/2015 12:42 PM R esults for this RIGHT JOINT WO EST procedure are in CONTRAST the results section. documented in this encounter Results MRI Lower Extremity Right Joint WO Contrast (05/29/2015 12:42 PM EST) Anatomical Region Laterality Modality Hip, Thigh, Knee, Leg, Ankle, Foot Right Magne tic Resonance Specimen (Source) Anatomical Location Collection Method / Collectio n Time Received Time / Laterality Volume Impressions 05/29/2015 1:00 PM EST IMPRESSION: 1. 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 Narrative 05/29/2015 1:00 PM EST EXAMINATION: MRI LOWER EXTREMITY RIGHT JOINT WO CONTRAST CLINICAL HISTORY: Upper thigh mass post trauma. ??R/O IT band tear, muscle herniation TECHNIQUE: Noncontrast MRI of the right thigh was performed COMPARISON: Targeted ultrasound of the l ateral right thigh 04/27/2015 FINDINGS: There is a elongate T2 hyperintense rubi ection of fluid in the lateral thigh situated in the subcutaneous fat at its interface with the underlying fascia varun and overlying the iliotibial band. This extends from the level the greater trochanter to the mid thigh and measures approximately 6.5 x 1.2 x 19.5 cm in size. There are several globules of fat signal intensity within the collection which extends to a chronic appearing sof t tissue wound or incision site along the posterior lateral thigh. 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 No disruption/tear of the fascial ilioti bial band. No intramuscular edema or focal muscle hernia is identified. There is mild fatty infiltration/atrophy of the right gluteus minimus muscle and non specific peritendinous edema about the bilateral gluteal tendon insertions with out discrete gluteal tendon tear. The common hamstring tendon origins are inta ct. No pathologically enlarged right inguinal lymph nodes are seen. There is a small amount of hip joint flu id bilaterally within the physiologic range. Subchondral marrow edema at the r ight acetabular roof is likely due to overlying chondral injury/osteoarthropat hy which is not well characterized on these large kebhx-ky-wnly images. Chroni c/healed right inferior pubic ramus fracture deformity is noted. The bladder appears grossly normal. No free pelvic fluid is identified. Procedure Note Dash Galeana MD - 05/29/2015Formatti ng of this note might be different from the original. EXAMINATION: MRI LOWER EXTREMITY RIGHT J OINT WO CONTRAST CLINICAL HISTORY: Upper thigh mass post trauma. R/O IT band tear, muscle herniation TECHNIQUE: Noncontrast MRI of the right thigh was performed COMPARISON: Targeted ultrasound of the l ateral right thigh 04/27/2015 FINDINGS: There is a elongate T2 hyperintense rubi ection of fluid in the lateral thigh situated in the subcutaneous fat at its interface with the underlying fascia varun and overlying the iliotibial band. This extends from the level the greater trochanter to the mid thigh and measures approximately 6.5 x 1.2 x 19.5 cm in size. There are several globules of fat signal intensity within the collection which extends to a chronic appearing sof t tissue wound or incision site along the posterior lateral thigh. 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 No disruption/tear of the fascial ilioti bial band. No intramuscular edema or focal muscle hernia is identified. There is mild fatty infiltration/atrophy of the right gluteus minimus muscle and non specific peritendinous edema about the bilateral gluteal tendon insertions with out discrete gluteal tendon tear. The common hamstring tendon origins are inta ct. No pathologically enlarged right inguinal lymph nodes are seen. There is a small amount of hip joint flu id bilaterally within the physiologic range. Subchondral marrow edema at the r ight acetabular roof is likely due to overlying chondral injury/osteoarthropat hy which is not well characterized on these large wqxeh-pi-rrmo images. Chroni c/healed right inferior pubic ramus fracture deformity is noted. The bladder appears grossly normal. No free pelvic fluid is identified. IMPRESSION IMPRESSION: 1. 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 Divine Root MD IMG MRI ORDERABLES documented in this encounter Visit Diagnoses Not on filedocumented in this encounter Care Teams Residential Supervisor Relationship Specialty Start Date End Date Breanna Cortez MD PCP - General 03/06/[address] [place] [place] [address] [address] [place] [address] documented as of this encounter
--- OUTSIDE RECORDS SUMMARY | 2022-05-20 08:24 | XMS_ITS | Encounter Summary ---
:1955 Author Organization [facility] [place] [address] Care Team Providers Name Role Phone Breanna Cortez MD Primary Care Provider Encounter Details Date Type Department Care Team Description 05/02/2015 Laboratory Appointment Lab [address] [place] [address] Social History Tobacco Use Types Packs/Day Years Used Date Smoking Tobacco: Never Smokeless Tobacco: Never Alcohol Use Standard Drinks/Week Comments Yes 7 (1 standard drink = 0.6 oz pure alcoho l) Sex Assigned at Date Recorded Not on file documented as of this encounter Plan of Treatment Upcoming Encounters Date Type Specialty Care Team Description 07/09/2023 Office Visit Dermatology Patrick Villafana MD [address] DERMATOLOGY [place], [place] [address] (Wo rk) documented as of this encounter Visit Diagnoses Not on filedocumented in this encounter Care Teams Manager Academic Relationship Specialty Start Date End Date Breanna Cortez MD PCP - General 03/06/[address] [place], [place] [id number] documented as of this encounter
--- OUTSIDE RECORDS SUMMARY | 2022-05-20 08:24 | XMS_ITS | Encounter Summary ---
:1955 Author Organization [facility] [place] [address] Care Team Providers Name Role Phone Breanna Cortez MD Primary Care Provider Reason for Visit Reason Comments Skin Check Encounter Details Date Type Department Care Team Description 04/29/2019 Office [facility] Patrick Villafana MD Solar lentigo; [address] Sourav [address] Spider angioma [place] [address] [place], [place] [id number] (Wo rk) Social History Tobacco Use Types Packs/Day Years Used Date Smoking Tobacco: Never Smokeless Tobacco: Never Alcohol Use Standard Drinks/Week Comments Yes 7 (1 standard drink = 0.6 oz pure alcoho l) Sex Assigned at Date Recorded Not on file documented as of this encounter Progress Notes Patrick Villafana MD - 04/29/2019 9:15 AM EDT Problem: 1. Repeat skin checkup 2. History of nonmelanoma skin cancers in her parents Allyson follows up is now 63. She has been doing well. She is enjoying her residential. [facility] and skiing in [place] and visiting their children. Physical examination reveals a pleasant 63-year-old woman who has a benign examination of the chest the back the hands arms forearms thighs and the calves. She has really only minimal visible photodamage. Her skin looks objectively very good with even pigmentation and minimal if any solar elastotic damage. She has a spider angioma of the right upper medial cheek Assessment and plan: Benign skin examination 1. Patient reassured about her benign skin examination 2. Continue sun with precautions. Relayed the AAD recommendations for higher SPF sunscreen use 3. Continue our q. 2-year skin checkups. CC: Kelin Cortez MD documented in this encounter Plan of Treatment Upcoming Encounters Date Type Specialty Care Team Description 07/09/2023 Office Visit Dermatology Patrick Villafana MD [address] [facility] DERMATOLOGY [place], [place] [address] (Wo rk) documented as of this encounter Visit Diagnoses Diagnosis Solar lentigo Other dyschromia Spider angioma Nevus, non-neoplastic documented in this encounter Care Teams Oral Health Therapist Relationship Specialty Start Date End Date Breanna Cortez MD PCP - General 03/06/15 [address] [place] [address] documented as of this encounter
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
--- OUTSIDE RECORDS SUMMARY | 2022-05-20 08:24 | XMS_ITS | Encounter Summary ---
:1955 Author Organization [facility] Address [address] [place] [address] Care Team Providers Name Role Phone Unknown, Provider Primary Care Provider Chu Wayne MD Primary Care Provider Unavailable Encounter Details Date Type Department Care Team Description 03/25/2001 Hospital Encounter [facility] - Marcia Wayne MD Other Unknown, Provider, [address] [place] [address] Social History Tobacco Use Types Packs/Day Years Used Date Smoking Tobacco: Former Alcohol Use Standard Drinks/Week Comments Yes 0 (1 standard drink = 0.6 oz pure alcoho l) 1-2 glasses wine/evening Sex Assigned at Date Recorded Not on file documented as of this encounter Plan of Treatment Not on filedocumented as of this encounter Procedures Procedure Name Priority Date/Time Associated Diagnosis Comme [facility] SURGICAL PATHOLOGY Routine 03/25/2001 0:00 EDT Re sults for this procedure are i n the results section. documented in this encounter Results SURGICAL PATHOLOGY (03/25/2001 0:00 EDT) Component Value Ref Test Analysis Performed At [facility] Method Time Signature Pathology SURGICAL PATHOLOGY REPORT CAMILA ZIMMER Report: Reports generated via electronic interface contain zeynep garsia data; MINE RICHARDSON however they are lacking the format of the original report. Caution should be taken when reading/interpreting unformatte d reports. Name: ? ALLYSON KURTZ ? Accession #: ? [id number] ? : ? 1955 (Age: 45) ??F ? Collect Date: ? 03/25/2001 ? Location: ? [facility] ? Receive Date: ? 03/25/2001 ? Provider: NAWAF CORDOVA MD Copy to: CHU MENCHACA MD ? Final Pathologic Diagnosis: ? Uterus and cervix, hysterectomy: 1. ?Endometrium: ? - Weakly proliferative endometrium. 2. ?Myometrium: ? 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 3. ?Cervix: ? - No specific pathologic features. ?? Document reviewed and electronically signed by: Schuyler Sarmiento [facility] Report ??Date: 03/29/2001 17:41 By the signature above, the attending physician certifies th at he/she has personally conducted a gross and/or microscopic examin ation of the described specimens and rendered or confirmed the above diagnosis. Specimen(s) Received: ? Uterus Clinical History: ? Severe menorrhagia; R/O intrauterine path Gross Description: ? Received in formalin labelled Kurtz and uterus is a corpus uteri and cervix without attached adne xa. ??The uterus weighs 150 grams and measures 9.0 cm from fundus to cervix, 5.8 cm from cornu to corn u and 4.9 cm from anterior to posterior. The specimen is received with a 2.3 cm incision at the posterior aspect of the specimen. ??The serosal maldonado rface is fuller-pink and generally smooth with no grossly identifiable lesions. ?? The specimen is bivalved into anterior and posterior halves revealing distortion of the posterior p ortion of the endometrial cavity by a 2.5 x 2.5 x 1.7 cm circular submucosal myomatous nodule. The cut surface of the nodule is fuller-white, whorled a nd without evidence of hemorrhage, necrosis or cyst ic degeneration. The endometrium measures 0.1 cm in maximum thickness and is fuller-yellow and focally hemorrhagi c. ??There are no endometrial endo- or exophytic lesions p resent. The myometrium is fuller-pink and slightly trabecular and sharon ures 1.2 cm in maximum thickness anteriorly and 1.1 cm posteriorly. There is a single myomatous nodule present in the posterior endomyometrium which was jewel cribed earlier. The endocervix is fuller-yellow with a normal herringbone mucosal pattern. ??The ectocervix i s fuller-white, generally smooth and without grossly i dentifiable lesions. The squamocolumnar junction is grossly discernible. ?? BLOCK YOST A1 ?Full thickn ess procurement representative section of anterior endomyometrium A2 ?Full thickn ess procurement representative section of posterior endomyometrium A3-A5 ?Five rep resentative sections of submucosal myomatous nodule A6 ?Representat carmella section of anterior portion of endo- and ectocervix A7 ?Representat carmella section of posterior portion of endo- and ectocervix (Dr. Pepper)/[facility] End of Report Specimen (Source) Anatomical Collection Method Collection Time Re ceived Time Location / / Volume Laterality 03/25/2001 03/25/2001 15:4 2 EDT Nawaf Cordova MD PATHOLOGY ORDERABLES Performing Organization Address City/State/ZIP Code Phon e Number [facility] [address] [place] [address] SERVICES [facility] [address] [place] [address] documented in this encounter Visit Diagnoses Not on filedocumented in this encounter Care Teams Coat Padder Relationship Specialty Start Date End Date Unknown, Provider, PCP - General 05/27/13 06/06/13 Chu Wayne MD PCP - General 06/07/13 documented as of this encounter
--- OUTSIDE RECORDS SUMMARY | 2022-05-20 08:24 | XMS_ITS | Encounter Summary ---
:1955 Author Organization [facility] [place] [address] [place] [address] Care Team Providers Name Role Phone Chu Wayne MD Primary Care Provider [phone] Reason for Visit Reason Comments Skin Lesion nose Encounter Details Date Type Department Care Team Description 05/17/2012 Office Visit Dermatology Patrick Villafana, Spider angioma [address] [facility] (Primary Dx) [address] [place], [place] DERMATOLOGY [address] [place] [address] [phone] (Wo rk) Social History Tobacco Use Types Packs/Day Years Used Date Smoking Tobacco: Never Sex Assigned at Date Recorded Not on file documented as of this encounter Progress Notes Patrick Villafana MD - 05/17/2012 3:07 PM EST Problem is right nasal bridge lesion. Patient follows up and is now 56. She has noted a lesion on the right nasal bridge for about the last three years. She wonders if it can just be zapped. Physical examination reveals a spider angioma on the right nasal bridge. She has several small solar lentigos in the left and right lateral cheeks, as well. Otherwise, facial skin examination is unremarkable. Assessment and Plan: 1. Spider angioma, right nasal bridge. 1a. She gave informed consent. Site was anesthetized and lightly electrodesiccated with a Bircher hyfrecator setting of 3.0 tillman. 1b. Explained that this may require a few visits to achieve complete resolution. She will schedule followup if need be. 1c. Discussed wound care. 2. Solar lentigos, lateral cheeks. 2a. Would recommend sunscreen and bleaching cream for these. 2b. Could consider LN, too, but will hold off for now. Return to Clinic p.r.n. COPY: Chu Wayne M.D. documented in this encounter Plan of Treatment Upcoming Encounters Date Type Specialty Care Team Description 07/09/2023 Office Visit Dermatology Patrick Villafana MD [address] [facility] DERMATOLOGY [place], [place] [address] (Wo rk) documented as of this encounter Visit Diagnoses Diagnosis Spider angioma - Primary Nevus, non-neoplastic documented in this encounter Care Teams Chain Machine Operator Relationship Specialty Start Date End Date Chu Wayne MD PCP - General 05/28/10 03/05/15 [address] [place] [address] documented as of this encounter
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
--- OUTSIDE RECORDS SUMMARY | 2022-05-20 08:24 | XMS_ITS | Encounter Summary ---
:1955 Author Organization [facility] [place] [address] Care Team Providers Name Role Phone Breanna Cortze MD Primary Care Provider Reason for Visit [...] Expiration Date Visits Requ ested Visits Authorized [id number] Closed 1 1 Encounter Details Date Type Department Care Team Description 05/29/2015 Surgery Outpatient Surgery Pk Root MD SUCTION ASSISTED Center [facility] LIPECTOMY, [facility] DR LANDEROS (WRVU 15.59) [facility] [place] [address] [place] [address] [phone] Social History Tobacco Use Types Packs/Day Years Used Date Smoking Tobacco: Never Smokeless Tobacco: Never Alcohol Use Standard Drinks/Week Comments Yes 7 (1 standard drink = 0.6 oz pure alcoho l) Sex Assigned at Date Recorded Not on file documented as of this encounter Last Filed Vital Signs Vital Sign Reading Time Taken Comments Blood Pressure 132/69 05/29/2015 1:11 PM EST Pulse 69 05/29/2015 1:11 PM EST Temperature 37 ??C (98.6 ??F) 05/29/2015 1:11 PM EST Respiratory Rate 16 05/29/2015 1:11 PM EST Oxygen Saturation 99% 05/29/2015 1:11 PM EST Inhaled Oxygen Concentration - - Weight 61.2 kg (135 lb) 05/29/2015 1:11 PM EST Height - - Body Mass Index 22.47 04/25/2015 10:00 AM EDT documented in this encounter Discharge Instructions Discharge InstructionsBrenda Owen RN - 05/29/2015 3:53 PM EST You received Toradol (Ibuprofen/nsaid medication) at 330 pm. Your next Dose of Ibuprofen should not be taken before 9:30 pm today. General Anesthesia Discharge Instructions Go home and rest. You may be sleepy for several hours. Take it easy as sudden position changes may cause nausea and/or dizziness. Use caution on stairs. Follow a light to regular diet as tolerated today. If nausea occurs, start with clear liquids, and progress slowly to a regular diet. Do not drive, operate machinery, drink alcoholic beverages or make any legal decisions after having general anesthesia. The medications given change your reaction time and alter your judgement. IV site -- slight redness is normal, you can use warm compresses. If tenderness and redness increases or foul drainage occurs, please contact your M.D. Patients who have had endotracheal tubes/LMA (tubes used by the anesthesia staff to ensure a safe airway during your operation) may have a sore throat. This is normal and cold liquids or soothing lozengers will help ease this discomfort. Narcotic pain medications can cause constipation, please ask the surgeons office what they recommendfor prevention of this. Some non-pharmaceutical means of constipation prevention include increasing intake of fluids, eating more fruits and vegetables as well as fruit juices. If you are uncomfortable and/or unable to urinate within 8 hours of discharge and it is before 5 pm,call your physician. If it is after 5pm go to the closest emergency room or call the hospital lie detector operator at [phone] and ask for physician middleware solutions architect covering for your physician. Questions or problems after 5pm or on a weekend: Call the [facility] lie detector operator at and ask for the physician middleware solutions architect covering for your doctor. Patient InstructionsMarco Samuels MD - 05/29/2015 1:23 PM EST PLASTIC SURGERY DISCHARGE INSTRUCTIONS WOUND CARE: OK to shower in 2 days. Do not submerge in water until cleared by MD. Keep dressing clean dry and intact. Record NESS output daily. Strip drain 4 times per day. You must avoid sunlight exposure to your incision(s). Do not use ointments on the incisions postoperatively unless instructed by MD. ACTIVITIES: Minimize contact to right thigh. Wear lower abdomen/upper thigh tight fitting garment except when showering. No heavy lifting until seen by MD. No driving or operating heavy machinery when on narcotics. DIET: Slowly advance diet as tolerated to a regular healthy diet. CALL MD IF: Increased pain, numbness, tingling, weakness, swelling, bruising, bleeding, or any other concerning signs/symptoms FOLLOW UP: Future Appointments Provider Department Dept Phone 06/06/2015 8:20 AM Kareen Davis, F[facility] Plastic Surgery [phone] MEDICATIONS: Your Medications New Medications Dose Details oxyCODONE 5 mg Tab Commonly known as: ROXICODONE Take 1 tablet by mouth every 4 hours as needed for Pain. 5 mg Quantity: 30 tablet Refills: 0 Continued medications, unchanged Dose Details CALCIUM 500 ORAL Take 500 mg by mouth nightly. 500 mg Refills: 0 ESTROVEN ORAL Take by mouth. Refills: 0 MAGNESIUM ORAL Take 400 mg by mouth nightly. 400 mg Refills: 0 Vitamin D 1,000 unit Cap Take 3,000 Units by mouth. Generic drug: cholecalciferol (Vitamin D3) 3000 Units Refills: 0 STOPPED Medications Ibuprofen 200 mg Cap NARCOTICS: You may be given a prescription for a narcotic medication immediately following your surgery. Narcotics are prescribed for short-term use to help treat your pain. Surgical pain requiring narcotics willusually be greatly decreased 2-3 days after surgery & should be mild to absent by 10-14 days. We will only prescribe a narcotic pain reliever for 2 weeks following your surgery. This will be determined by your surgeon. Narcotics do not reduce inflammation and it is inflammation that is usually a major cause of pain after surgery. Narcotics have many side effects such as constipation, lightheadedness, dizziness, sedation, confusion, nausea and vomiting. Driving and the use of alcohol are not recommended while you are using narcotic pain medications. Non-steroidal anti-inflammatories (NSAIDS) such as aspirin, Aleve and ibuprofen (Advil, Motrin) are medications that reduce pain and inflammation. If you find your pain is not adequately controlled with the prescribed dose of your narcotic pain medication, NSAIDS may be used 48 hours after surgery with your narcotic to help alleviate the pain caused by inflammation. As you progress through your post-operative period, your pain should decrease and the use of narcotic medications should be less necessary. To reduce your chance of side effects, it is recommended thatyou save your narcotic medication for nighttime use and switch to NSAIDS or Acetaminophen (Tylenol) during the day. Alternative means of pain relief such as rest and relaxation, positioning, as well as decreasing stimulants such as coffee, tea, soft drinks, and nicotine may also help to alleviate pain. If you continue to experience significant pain 4-5 days after your procedure, it may be necessary morgan re-evaluated by your physician. PRESCRIPTION RENEWALS: Renewal requests should be called in to our prescription line at [phone]. Narcotic renewals may be requested from 8am-4pm Thursday through Thursday. Due to patient safety, narcotic renewals will not be honored after hours or on weekends. It is best to make your request 2-3 daysbefore you run out of your medication as it will take at least 24 hours for physician approval and nurse follow-up. Note that certain prescriptions, such as Percocet, Oxycodone, Vicodin, & Hydrocodone can not be called in to a pharmacy and must be picked up or mailed to you. If mailed to you, expect 2-5 businessdays prior to arrival. CONTACT INFORMATION: During office hours: Thursday through Thursday 8 am to 5 pm Call [phone] On weekends or after hours: Call [phone] and ask the lie detector operator to page the Plastic Surgery Resident middleware solutions architect. documented in this encounter Medications at Time [...] for Pain. documented as of this encounter H&P Notes Divine Root MD - 05/29/2015 1:17 PM EST 24 HOUR INTERVAL H&P S: Allyson Cesar's condition unchanged since H&P originally performed Denies any new ED visits, hospitalizations, trauma, or new events. Has been overall doing well. O: Patient Vitals for the past 24 hrs: BP Pulse Resp SpO2 Weight 05/29/15 1311 132/69 mmHg 69 16 99 % 61.236 kg (135 lb) NAD Non-labored, CTAB RRR Site marked AP: 59 y.o. with right thigh/buttock hematoma. - After extensive discussion of the risks, benefits, and alteratives of surgical intervention, the patient consented to proceed with surgery. - IV antibiotics ordered - Proceed to OR for liposuction and fat grafting to right thigh/buttock. Marco Samuels MD Plastic Surgery Resident, PGY-6 There have been no interval changes in the health of the patient. I have examined and marked her andwe will proceed with thigh seroma drainage and liposuction today. We have discussed the skin marking. We have re-reviewed the risks including scar, infection, bleeding/hematoma, seroma, skin loss, delayed healing, contour irregularity, fat necrosis, sensation loss, spitting sutures and asymmetry and she wishes to proceed. Divine Root MD documented in this encounter Miscellaneous Notes Op Note - Divine Root MD - 05/29/2015 3:39 PM EST [facility] [place] Patient Name: Allyson Cesar : [id number] MR#: [id number] Case Date: 05/29/2015 Surgeon: Surgeon(s) and Role: * Divine Root MD - Primary * Marco Samuels MD - Resident-Surgeon Chief Preoperative diagnosis: right thigh deformity Postoperative diagnosis: right thigh deformity Procedure(s): SUCTION ASSISTED LIPECTOMY, LOWER EXTREMITY INCISION & DRAINAGE HEMATOMA, SEROMA OR FLD. COLLECTION, LOWER EXTREMITY Anesthesia: Anesthesia type not filed in the log. Estimated Blood Loss: * No values recorded between 05/29/2015 2:24 PM and 05/29/2015 3:39 PM * Specimens removed during surgery: None Drains: NESS- 10 Chinese Surgical Closure: Primary Closure - closure of ALL tissue levels during the original surgery regardless of wires, wickes, drains, or other devices extruding through the incision Disposition: awakened from anesthesia, extubated and taken to the recovery room in a stable condition, having suffered no apparent untoward event. Condition: doing well without problems (Please see the Surgical Encounter Summary for any Implant and Specimen details pertinent to this patient.) HPI/Surgical Indications: Allyson is a 59 yo F who presents 8 months post traumatic injury to her right thigh with Reynaga Gabrielle lesion causing her discomfort fitting into clothing and disatisfaction bythe prominence. We discussed the nature of her chronic seroma and treatment options including seromadrainage, sclerotherapy, and if this does not result in resolution the excision of the entire capsule and quilting sutures to close the defect. Shje would like to try the drain placement prior to any further aggressive approach. She would also like some liposuction to try to thin the overlying tissue.I have warned her that I would only liposuction very conservatively because I hope her appearance will improve with resolution of the seroma. Procedure Description: The patient was marked in the preoperative area in the standing and sitting position and all risks and post-operative care reviewed. A preoperative dose of antibiotics was given.The patient was then brought to the [facility] operating room where she was placed on the OR table in the supine position. SCD boots were placed and general anesthesia induced. With the ET tube secured, she was then rotated to the left side down lateral decubitus position. An axillary role was placed and allbony prominences padded. Her thigh was then prepped and draped in the standard sterile fashion. Immediately prior to the start of the procedure, the procedural care team participated in an active process whereby the following were confirmed and agreed upon by all present: patient's identity, intended procedure, including site and side; correct positioning/presence of elicia; and availability of specialequipment/implant. We began with the breast reduction. At the prior site of drain placement, 3 cc of 1/4% Marcaine with epi was infiltrated. Along the prior incision, a small stab incision was made. Using ultrasound for guidance, we then attempted to insert a drain into the seroma cavity. The capsule was thick and palpable. We could not visualize placement of the drain and therefore extended the incision to 3 cm in length. We then deepened the dissectionusing blunt dissection to the level of the capsule. A 15 blade was then used to incise the capsule and copious amount of clear yellow tinged seroma fluid released. The drain was then inserted under direct vision into the cavity and then tunneled to exit inferiorly at the most caudal portion of the prominence. We then tumesced the thigh with 200 cc of tumescent solution. After allowing time for the epinephrine to take effect, a 2 mm Yaneli canula was then chosen and liposuction of 200 cc of lipoaspirate performed via multiple passes to allow a smooth but less prominent contour without contour irreg ularity. When I was satisfied with the contour, the wound was then irrigated with warm normal salineand hemostasis meticulously achieved with Bovie cautery. Closure was first begun by approximating the deep fascia with 3-0 Vicryl suture and then deep dermal 3-0 Vicryl and running subcuticular 4-0 Monocryl. In the drain, 20 cc of 1/4% Marcaine with epinephrine was injected and allowed to rest 20 minutes. The wound was then dressed with dermabond, steristrips and a sterile dressing and the patient placed in a compression garment. There were no complications and the procedure was well tolerated. Infection Bundle used? N/A Attestation: Case Date: 05/29/2015 I was present and I participated during the entire procedure (does not need to include opening and closing). DIVINE ROOT MD 05/29/2015 Brief Op Note - Divine Root MD - 05/29/2015 3:38 PM EST Brief Operative Note Patient Name: Allyson Cesar : [id number] MR#: [id number] Case Date: 05/29/2015 Surgeon: Surgeon(s) and Role: * Divine Root MD - Primary * Marco Samuels MD - Resident-Surgeon Chief Preoperative diagnosis: right thigh deformity Postoperative diagnosis: right thigh deformity Procedure(s): SUCTION ASSISTED LIPECTOMY, LOWER EXTREMITY INCISION & DRAINAGE HEMATOMA, SEROMA OR FLD. COLLECTION, LOWER EXTREMITY Anesthesia: Anesthesia type not filed in the log. Findings: seroma Complications: none Fluids: 750 cc Estimated Blood Loss: 1 cc Drains: 10 NESS Disposition: awakened from anesthesia, extubated and taken to the recovery room in a stable condition, having suffered no apparent untoward event. Condition: doing well without problems Infection Bundle used? N/A Attestation: Case Date: 05/29/2015 I was present and I participated during the entire procedure (does not need to include opening and closing). (Please see the Surgical Encounter Summary for any Implant and Specimen details pertinent to this patient.) documented in this encounter Plan of Treatment Upcoming Encounters Date Type Specialty Care Team Description 07/09/2023 Office Visit Dermatology Patrick Villafana MD [address] [place] [address] DERMATOLOGY [place], [place] [address] (Wo rk) documented as of this encounter Procedures Procedure Name Priority Date/Time Associated Comments Diagnosis ULTRASONIC GUIDANCE Routine 05/29/2015 3:53 PM FOR NEEDLE PLACEMENT EST INCISION & DRAINAGE Routine 05/29/2015 3:39 PM HEMATOMA, SEROMA OR EST FLD. COLLECTION, ALEX ULTRASONIC GUIDANCE 05/29/2015 2:00 PM right thigh FOR NEEDLE PLACEMENT EST deformity (WRVU 0.67) INCISION & DRAINAGE 05/29/2015 2:00 PM right thigh HEMATOMA, SEROMA OR EST deformity FLD. COLLECTION, LOWER EXTREMITY (WRVU 1.58) SUCTION ASSISTED 05/29/2015 2:00 PM right thigh LIPECTOMY, LOWER EST deformity EXTREMITY (WRVU 15.59) MRI LOWER EXTREMITY Routine 05/29/2015 12:42 PM [...] is not well characterized on these large [id number]-sk-spkj images. Chroni c/healed right inferior pubic ramus [...] is not well characterized on these large rbbng-ov-ocdu images. Chroni c/healed right inferior pubic ramus [...] MAR Action Action Date Dose Rate Site BUpivacaine-EPINEPHrine Given 05/29/2015 3:34 PM 62.5 mg 19- Surgical Site 0.25 %-1:200,000 EST injection ONCE PRN, Starting on Thu05/29/15 at 1443, Until Thu05/29/15 at 1732, Intra-Operative (Intra-Procedure), Routine Given 05/29/2015 2:43 PM EST 7.5 mg 19- S urgical Site oxyCODONE (ROXICODONE) immediate release tablet Given 05/29/2015 4:17 PM EST 5 mg 5 mg 5 mg, Oral, EVERY 4 HOURS PRN, Starting on Thu05/29/15 at 1320, Until Thu05/29/15 at 1933, Pain, Routine documented in this encounter Active and Recently Administered Medications Times are shown in EST. Continuous Medication Order 05/27/2015 05/28/2015 05/29/2015 lactated ringers infusion 1,000 mL (CANCELED) 1358 (New Bag - Provider: Priti Mallory RESIDENT CARE MANAGER)1530 (Anesthesia Volume Adjustment - Provider: Anna Gloria RESIDENT CARE MANAGER) 1,000 mL, at 100 mL/hr, Intravenous, CON TINUOUS, Starting Thu05/29/15 at 1345, Until Thu05/29/15 at 1732, Day of Surgery (Day of Procedure) PRN Medication Order 05/27/2015 05/28/2015 05/29/2015 BUpivacaine-EPINEPHrine 0.25 %-1:200,000 injection (CANCELED) 1443 (Given - Provider: Divine Root MD)1534 (Given - Provider: Divine Root MD) ONCE PRN, Starting Thu05/29/15 at 1443, Until Thu05/29/15 at 1732, Intra- Operative (Intra-Procedure), Routine oxyCODONE (ROXICODONE) immediate release tablet 5 mg (CANCELED) 1617 (Given - Provider: Brenda Owen RN) 5 mg, Oral, EVERY 4 HOURS PRN, Starting 05/29/15 at 1320, Until 05/29/15 at 1933, Pain, Routine No Frequency Medication Order 05/27/2015 05/28/2015 05/29/2015 ceFAZolin (ANCEF) 2 gram/50 mL infusion (COMPLETED) 1413 (Given - Provider: Priti Mallory CRNA) 1 dose, Starting 05/29/15 at 1324, U ntil e 05/29/15 at 1413, OLIVIER CRUZ: cabinet override documented in this encounter Care Teams Lan Specialist Relationship Specialty Start Date End Date Breanna Cortez MD PCP - General 03/06/[address] [place] [address] documented as of this encounter
--- OUTSIDE RECORDS SUMMARY | 2022-05-20 08:24 | XMS_ITS | Encounter Summary ---
:1955 Author Organization [facility] [place] [address] Care Team Providers Name Role Phone Breanna Cortez MD Primary Care Provider Reason for Visit Reason Comments Follow Up Surgery thigh liposuction Encounter Details Date Type Department Care Team Description 06/06/2015 Office Visit Plastic Surgery at [facility] Kareen Davis, [place] [phone] PLASTIC SURGERY [place], [place] [address] (Wo rk) Social History Tobacco Use Types Packs/Day Years Used Date Smoking Tobacco: Never Smokeless Tobacco: Never Alcohol Use Standard Drinks/Week Comments Yes 7 (1 standard drink = 0.6 oz pure alcoho l) Sex Assigned at Date Recorded Not on file documented as of this encounter Patient Instructions Patient InstructionsKareen Davis APRN - 06/06/2015 9:03 AM EST Plan: 1. Follow up: September 2015 upon return from [place] 2. Maintain support garments 3. Leave steri-strips in place until 6 weeks post-op. Replace as needed 4. Scar massage 5. Call for drain removal when output is less than 10 ml per day x 2 days. -SCAR MASSAGE TECHNIQUE: to begin 4-6 weeks following surgery What is a scar? When an injury occurs, the body immediately begins to repair itself & the area becomes swollen & sore. Eventually small collagen fibers form, becoming a solid tissue that results in a scar. This scar will continue to change in appearance for 1-2 years. Ideally, a scar is smooth & flat, blending in with the surrounding skin. However, some scars may become highly visible & unattractive d ue to factors such as your age, scar location & size, nutrition, genetics, or infection. A hypertrophic scar occurs when there is an excess production of collagen tissue that is elevated but remains within the wound boundaries. The scar is tense, red, & can be associated with itching & tenderness. A hypertrophic scar can be ordinary (usually stabilizes in 3 months & may even get smaller and smoother) or keloid. The keloid scar invades nearby tissue that was not part of the original wound, tends to enlarge even after 6 months & does not get softer. Will scar massage make my scars disappear? Nothing can make scars disappear. However, massaging the scar assists the body in breaking down the scar tissue to give it a flatter, softer, appearance. Massage also mobilizes the scar, preventing it from adhering to underlying tissue, tendons, & nerves. You can make the greatest difference in the appearance of the scar if you massage it in the first 3 months. What should I use on my scars? You will hear many recommendations. This clinic finds that it is the massage itself that reduces thescar & not necessarily the choice of ointments or creams. We do discourage the use of Vitamin E oil, however, due to studies that have reported scar inflammation & deterioration. How do I massage my scars? Generously apply the lotion or cream into the scar 3-4 times a day for 8 weeks on new scars, and 3-4times per day for 3 to 6 months on existing scars. Using your finger, apply pressure to the scar in a crosswise & circular direction, bearing down as hard as tolerated. Remember to protect your scar from the sun, especially in the first 6-12 months, by using a moisturizer with sunblock and wearing a physical barrier (ie: a hat) when possible documented in this encounter Progress Notes Kareen Davis APRN - 06/06/2015 8:34 AM EST Plastic Surgery Post Op Note Reason for visit: F/U status post procedure Date of surgery: 05/29/15 Procedure(s): Right thigh hematoma evacuation and contouring Complications: None reported Pain: 07/15 HPI: Pt reports that she is feeling better. She called in yesterday with concerns of dizziness and not feeling well. She increased her fluids and is feeling better today. Her drain output has been 15-20 ml per day. She has been compliant with compression. Examination: Patient is alert, conversant, comfortable, ambulating Incision: CDI, healing well. Steri-strip removed and replaced. Drain in place with serous output. Edema and ecchymosis as expected. No collection, no erythema, no evidence of cellulitis. Impression: Allyson Cesar is a 59 y.o. female who was seen today for follow-up after the above procedure. Please see the operative note for details. She is doing well without complaints. Plan: 1. Follow up: September 2015 upon return from [place] 2. Maintain support garments 3. Leave steri-strips in place until 6 weeks post-op. Replace as needed 4. Scar massage 5. Call for drain removal when output is less than 10 ml per day x 2 days. documented in this encounter Plan of Treatment Upcoming Encounters Date Type Specialty Care Team Description 07/09/2023 Office Visit Dermatology Patrick Villafana MD [address] [place] [address] DERMATOLOGY [place], [place] [address] (Wo rk) documented as of this encounter Visit Diagnoses Diagnosis Surgery follow-up Follow-up examination, following unspeci fied surgery documented in this encounter Care Teams Pelletising Extruder Operator Relationship Specialty Start Date End Date Breanna Cortez MD PCP - General 03/06/[address] [place] [address] documented as of this encounter
--- OUTSIDE RECORDS SUMMARY | 2022-05-20 08:24 | XMS_ITS | Encounter Summary ---
:1955 Author Organization [facility] Address [address] [place] [address] Care Team Providers Name Role Phone Lexus Cortez MD Primary Care Provider Reason for Visit Reason Comments Advice Only seroma right thigh Encounter Details Date Type Department Care Team Description 03/20/2015 Office Visit Plastic Surgery at Tahir Schmidt MD Traumatic hematoma of [facility] thigh, unspecified [facility] [address] morin, initial [facility] PLASTIC SURGERY encounter [place] [phone] Social History Tobacco Use Types Packs/Day Years Used Date Smoking Tobacco: Never Smokeless Tobacco: Never Alcohol Use Standard Drinks/Week Comments Yes 7 (1 standard drink = 0.6 oz pure alcoho l) Sex Assigned at Date Recorded Not on file documented as of this encounter Last Filed Vital Signs Vital Sign Reading Time Taken Comments Blood Pressure 136/77 03/20/2015 10:46 AM EDT Pulse 70 03/20/2015 10:46 AM EDT Temperature - - Respiratory Rate - - Oxygen Saturation - - Inhaled Oxygen Concentration - - Weight 62.6 kg (138 lb) 03/20/2015 10:46 AM EDT Height 165.1 cm (5' 5) 03/20/2015 10:46 AM EDT Body Mass Index 22.96 03/20/2015 10:46 AM EDT documented in this encounter Patient Instructions Patient InstructionsBrinda Cabello RN - 03/20/2015 11:48 AM EDT Follow up in June with Dr. Schmidt to discuss possible surgical correction. Photos were taken today. Please call our office if you have any questions or concerns. The nurses line: [phone] Thursday through Thursday - The secretaries line: [phone] For emergencies at night or on the weekend: Call the main hospital number [phone] and ask for the Plastic Surgeon superintendent car construction. documented in this encounter Progress Notes Tahir Schmidt MD - 03/20/2015 10:56 AM EDT Plastic Surgery Consultation Note LEXUS CORTEZ MD (General) None (Regular Care Provider) CC: Right thigh contour deformity HPI: Allyson Cesar is a 59 y.o. female here in consultation at the request of LEXUS CORTEZ MD(General). She reports that after an injury in which she slammed into a tree while skiing in [facility] September 2014 and she sustained compression fracture of the spine and pelvic fracture with subsequent hematoma of the right thigh. After the injury she was admitted for 48 hours with brace mobilization due to her spinal injuries. On 11/22/14 it was drained and a drainage catheter was installed. Shenotes that the hematoma improved but is still sore, aches, and bothersome to her. Deejay ultrasound wasperformed 03/06/15 revealing 35cc of fluid. She cannot run and wears compression shorts at all times. She has been to PT with no relief of her symptoms. 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 Past Medical History Diagnosis Date ??? 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 Smoking status: Never Smoker ??? Smokeless tobacco: Never Used ??? Alcohol Use: 4.2 oz/week 7 Not specified per week ??? Drug Use: No ??? Sexual Activity: Not on file Other Topics Concern ??? Not on file Social History Narrative Allergies Allergen Reactions ??? Sulfa (Sulfonamide Antibiotics) No current outpatient prescriptions on file prior to visit. No current facility-administered medications on file prior to visit. Examination: BP 136/77 mmHg Pulse 70 Ht 165.1 cm (5' 5) Wt 62.596 kg (138 lb) BMI 22.96 kg/m2 Constitutional: No acute distress Obvious contour deformity of right upper thigh encompassing the lateral third overlying the trochanter. No fluid collection palpable Impression: Allyson Cesar 59 y.o. female patient with right thigh contour deformity secondary to trauma. No fluid collection appreciated. I advised that she may benefit from liposuction in the future should she desire. She is aware she may require more than one procedure. However, we discussed that given the relatively recent date and nature of the trauma the deformity may continue to resolve in time. I recommend she wait until winter to schedule any liposuction to be able to appreciably address her symptomatology. Any procedure at this time may further traumatize the area. She is agreeable to this plan. Photos obtained with informed signed consent Plan: 1. Follow up: June to schedule liposuction IBrenda, am acting as scribe for Dr. Schmidt. All work documented was performed by Dr. Schmidt. ???I performed the above scribed service and agree with the accuracy of the note?? TAHIR SCHMIDT MD documented in this encounter Plan of Treatment Upcoming Encounters Date Type Specialty Care Team Description 07/09/2023 Office Visit Dermatology Patrick Villafana MD [address] DERMATOLOGY [place], [place] [address] (Wo rk) documented as of this encounter Visit Diagnoses Diagnosis Traumatic hematoma of thigh, unspecified laterality, initial encounter documented in this encounter Care Teams Bio Medical Technician Relationship Specialty Start Date End Date Lexus Cortez MD PCP - General 03/06/[address] [place] [address] documented as of this encounter
--- OUTSIDE RECORDS SUMMARY | 2022-05-20 08:24 | XMS_ITS | Encounter Summary ---
:1955 Author Organization [facility] Address [address] [place] [address] Care Team Providers Name Role Phone Unavailable Primary Care Provider Unavailable Encounter Details Date Type Department Care Team Description 10/13/2000 Results Only [facility] - Amarilys Jacobson, Chr istopher, conversion DO [address] [facility] [address] [place] [address] [place] [address] (Wo rk) Social History Tobacco Use Types Packs/Day Years Used Date Smoking Tobacco: Never Assessed Sex Assigned at Date Recorded Not on file documented as of this encounter Plan of Treatment Not on filedocumented as of this encounter Procedures Procedure Name Priority Date/Time Associated Diagnosis Comme nts SURGICAL PATHOLOGY Routine 10/13/2000 0:00 EDT Re sults for this procedure are i n the results section. SURGICAL PATHOLOGY Routine 10/13/2000 0:00 EDT Re sults for this procedure are i n the results section. documented in this encounter Results SURGICAL PATHOLOGY (10/13/2000 0:00 EDT) Component Value Ref Test Analysis Performed At [facility] Method Time Signature Pathology SURGICAL PATHOLOGY REPORT CAMILA ZIMMER Report: Reports generated via electronic interface contain origina l data; [facility] however they are lacking the format of the original report. Caution should be taken when reading/interpreting unformatte d reports. Name: ? ALLYSON KURTZ ? Accession #: ? [id number] ? : ? 1955 (Age: 44) ??F ? Collect Date: ? 10/13/2000 ? Location: ? [facility] ? Receive Date: ? 10/13/2000 ? Provider: NAWAF CORDOVA MD Copy to: ARIANE COVARRUBIAS MD ? Final Pathologic Diagnosis: ? Endometrium, curettage: - Benign endometrium with tubal metaplasia. Document reviewed and electronically signed by: Schuyler Sarmiento [facility] Report ??Date: 10/15/2000 16:30 By the signature above, the attending physician certifies th at he/she has personally conducted a gross and/or microscopic examin ation of the described specimens and rendered or confirmed the above diagnosis. Specimen(s) Received: ? Endometrial curetting Clinical History: ? Menorrhagia Gross Description: ? Received in formalin labelled Cr osby and endometrial curettings are numerous fragments of fuller-pink to pink-thomas soft tissu e adherent to a pad of synthetic material. ??The specimen measu res approximately 1.25 cc in aggregate volume. ??The specimen is maldonado bmitted entirely in one cassette. ??(Dr. Briseno[place] End of Report Specimen (Source) Anatomical Collection Method Collection Time Re ceived Time Location / / Volume Laterality 10/13/2000 10/13/2000 15:3 4 EDT Nawaf Cordova MD PATHOLOGY ORDERABLES Performing Organization Address City/State/ZIP Code Phon e Number [facility] [address] [place] [address] SERVICES [facility] [address] [place] [address] SURGICAL PATHOLOGY (10/13/2000 0:00 EDT) Component Value Ref Test Analysis Performed At [facility] Range Method Time Signature Pathology SURGICAL PATHOLOGY REPORT CAMILA ZIMMER Report: Reports generated via electronic interface contain [facility] data; [facility] however they are lacking the format of the original report. Caution should be taken when reading/interpreting unformatte d reports. Name: ? ALLYSON KURTZ ? Accession #: ? [id number] ? : ? 1955 (Age: 44) ??F ? Collect Date: ? 10/13/2000 ? Location: ? [facility] ? Receive Date: ? 10/13/2000 ? Provider: TIM JACOBSON DO Copy to: ARIANE COVARRUBIAS MD ? Final Pathologic Diagnosis: ? Lung, right apex, wedge biopsies: 1. 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 2. ?Vascular congestion. Document reviewed and electronically signed by: Schuyler Sarmiento [facility] Report ??Date: 10/15/2000 16:29 By the signature above, the attending physician certifies th at he/she has personally conducted a gross and/or microscopic examin ation of the described specimens and rendered or confirmed the above diagnosis. Specimen(s) Received: ? R apical lung bleb Clinical History: ? Recurrent pneumothorax Gross Description: ? Received in formalin labelled Cr osby and R apical lung bleb are two wedge biopsies of lung measu ring 3.5 x 1.9 x 1.5 cm and 2.1 x 1.5 x 1.2 cm. ??The specimens are received with multiple staple line s in place. ??The margins are inked black. The staple lines are removed, and serial sectio jennie reveals homogeneous dark red to red- thomas cut surfaces. ??No focal masses or other lesions are identified. ??The larger biopsy specimen is submitted entirely as (A1) ??(A3), and the smaller as (A4) ??(A5). ??(Dr. Briseno)/[facility] End of Report Specimen (Source) Anatomical Collection Method Collection Time Re ceived Time Location / / Volume Laterality 10/13/2000 10/13/2000 15:3 2 EDT Tim Jacobson DO PATHOLOGY ORDERABLES Performing Organization Address City/State/ZIP Code Phon e Number [facility] [address] [place] [address] SERVICES [facility] [address] [place] [address] documented in this encounter Visit Diagnoses Not on filedocumented in this encounter
--- OUTSIDE RECORDS SUMMARY | 2022-05-20 08:24 | XMS_ITS | Encounter Summary ---
:1955 Author Organization [facility] [place] [address] Care Team Providers Name Role Phone Breanna Cortez MD Primary Care Provider Reason for Visit Reason Comments Skin Check Follow-up Encounter Details Date Type Department Care Team Description 07/10/2016 Office Visit Dermatology at [facility] Patrick Villafana MD Solar lentigo; [address] Sourav [address] [place] [address] [place], [place] [id number] (Wo rk) Social History Tobacco Use Types Packs/Day Years Used Date Smoking Tobacco: Never Smokeless Tobacco: Never Alcohol Use Standard Drinks/Week Comments Yes 7 (1 standard drink = 0.6 oz pure alcoho l) Sex Assigned at Date Recorded Not on file documented as of this encounter Progress Notes Patrick Villafana MD - 07/10/2016 3:00 PM EST PROBLEM: Skin checkup. Allyson follows up and is now 60. 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 Next month, very soon, a skiing trip out to visit children and ski in [place]. She said that her father had several basal cell skin cancers in later years, but had relatively few sun issues. Her mother was freckled, fair skinned, and had numerous skin lesions treated. She is not aware of any family history of melanoma. PHYSICAL EXAMINATION: Reveals a 60-year-old woman who has blue eyes and type 3-4 Beckett, pigmentation. She has benign examination of the face, the neck, the chest, the back, hands, arms, forearms, thighs and the calves. There is no evidence of any malignant or premalignant lesions. ASSESSMENT AND PLAN: Benign skin examination. a. The patient had a benign skin examination. b. The patient has purchased Porcelana to use for solar lentigos on dorsal hands, and I think that is very reasonable. Stressed the importance of sun avoidance precautions in addition to Porcelana. c. Would recommend that she be seen on a roughly a q.3 to 4 year basis for routine skin checks. I do not think that yearly visits are necessary. d. Return to clinic in 3 to 4 years for repeat check, sooner for any new lesions of concern. CC: Breanna Cortez MD documented in this encounter Plan of Treatment Upcoming Encounters Date Type Specialty Care Team Description 07/09/2023 Office Visit Dermatology Patrick Villafana MD [address] [facility] DERMATOLOGY [place], [place] [address] (Wo rk) documented as of this encounter Visit Diagnoses Diagnosis Solar lentigo Other dyschromia Nevus Benign neoplasm of skin, site unspecifie d documented in this encounter Care Teams Hardwood Finisher Relationship Specialty Start Date End Date Breanna Cortez MD PCP - General 03/06/[address] [place] [address] documented as of this encounter
--- OUTSIDE RECORDS SUMMARY | 2022-05-20 08:24 | XMS_ITS | Encounter Summary ---
:1955 Author Organization [facility] [place] [address] Care Team Providers Name Role Phone Breanna Cortez MD Primary Care Provider Encounter Details Date Type Department Care Team Description 05/28/2015 Telephone Plastic Surgery at [facility] [place] [address] Social History Tobacco Use Types Packs/Day Years Used Date Smoking Tobacco: Never Smokeless Tobacco: Never Alcohol Use Standard Drinks/Week Comments Yes 7 (1 standard drink = 0.6 oz pure alcoho l) Sex Assigned at Date Recorded Not on file documented as of this encounter Miscellaneous Notes Telephone Encounter - Haydee Gresham - 05/28/2015 11:24 AM EST MRI questions documented in this encounter Plan of Treatment Upcoming Encounters Date Type Specialty Care Team Description 07/09/2023 Office Visit Dermatology Patrick Villafana MD [address] [facility] DERMATOLOGY [place], [place] [address] (Wo rk) documented as of this encounter Visit Diagnoses Not on filedocumented in this encounter Care Teams Actuarial Analyst Relationship Specialty Start Date End Date Breanna Cortez MD PCP - General 03/06/[address] [place] [address] documented as of this encounter
--- OUTSIDE RECORDS SUMMARY | 2022-05-20 08:24 | XMS_ITS | Encounter Summary ---
:[address] [facility] Address [address] [place] [address] Care Team Providers Name Role Phone Unavailable Primary Care Provider Unavailable Encounter Details Date Type Department Care Team Description 08/25/2000 Results Only [facility] - Nawaf Arreola MD conversion [address] [place] [address] Social History Tobacco Use Types Packs/Day Years Used Date Smoking Tobacco: Never Assessed Sex Assigned at Date Recorded Not on file documented as of this encounter Plan of Treatment Not on filedocumented as of this encounter Procedures Procedure Name Priority Date/Time Associated Diagnosis Comme nts CYTOPATHOLOGY Routine 08/25/2000 0:00 EST Results for this procedure are i n the results section . documented in this encounter Results CYTOPATHOLOGY (08/25/2000 0:00 EST) Component Value Ref Test Analysis Performed At [facility] Method Time Signature Pathology CYTOPATHOLOGY REPORT LEISA Report: [facility] Reports generated via electronic interface contain original data; however they are lacking the format of the original report. Caution should be taken when reading/interpreting unformatte d reports. Name: ? ALLYSON KURTZ ? Accession #: ? [id number] : ? 1955 (Age: 44) ??F ?Collect Date: ? 08/25/2000 Location: ? [facility] ? Receive Date: ? 08/27/2000 Provider: ?NAWAF CORDOVA MD Copy to: ? Specimen/Source: ?ThinPrep Pap Test, Cervix/Endoce rvix Last Menstrual Period: ? Menstrual/ Status: ? Menorrhagia Other: ? Additional clinical information: Mild prolapse ? SPECIMEN ADEQUACY ? Satisfactory for evaluation. GENERAL CATEGORIZATION ? Within Normal Limits ? Document reviewed and electronically signed by: ? ANGELA Childs(ASCP) ? Report Date: ??08/28/2000 08:50 End of Report Specimen (Source) Anatomical Location Collection Method / Collectio n Time Received Time / Laterality Volume 08/25/2000 08/27/2000 Nawaf Cordova MD PATHOLOGY ORDERABLES Performing Organization Address City/State/ZIP Code Phon e Number [facility] [address] [place] [address] SERVICES [facility] [address] [place] [address] documented in this encounter Visit Diagnoses Not on filedocumented in this encounter
--- OUTSIDE RECORDS SUMMARY | 2022-05-20 08:24 | XMS_ITS | Encounter Summary ---
:1955 Author Organization [facility] [place] [address] Care Team Providers Name Role Phone Breanna Cortez MD Primary Care Provider Reason for Visit Reason Comments Procedure juvederm to upper lip Encounter Details Date Type Department Care Team Description 10/15/2015 Office Visit Plastic Surgery at [facility] Divine Root MD [facility] [place] [address] PLASTIC SURGERY [phone] [place], [place] [address] (Wo rk) Social History Tobacco Use Types Packs/Day Years Used Date Smoking Tobacco: Never Smokeless Tobacco: Never Alcohol Use Standard Drinks/Week Comments Yes 7 (1 standard drink = 0.6 oz pure alcoho l) Sex Assigned at Date Recorded Not on file documented as of this encounter Patient Instructions Patient Sunshine Cardoso RN - 10/15/2015 3:06 PM EDT Voluma Instructions: There are no activity restrictions You may wear make up, foundation or concealer with sun block protection. Stay out of the sun until redness and bruising subside, usually 48-72 hours. temporary stinging, throbbing or burning, redness, swelling and minor bruising can be expected, but should subside in 24-48 hours documented in this encounter Progress Notes Divine Root MD - 10/15/2015 1:30 PM EDT Plastic Surgery Post Op Note Reason for visit: Filler injections Date of surgery: 05/29/15 Procedure(s): Right thigh seroma (Reynaga Gabrielle lesion) evacuation and contouring Complications: None reported Pain: 0/10 HPI: Pt returns to clinic today filler injections to her upper lip and oral commisures. She does notlike the appearance of her upper lip vertical rhytides and the oral commissures which look turned down to her. She has thought about this extensively and wishes to proceed with Juvederm injections. Sheunderstands there may be swelling and bruising an dincomplete correction. She does not want to change the volume of her lips but just wants to try to smooth the whiskers. She reports that she had a consult with Dr. Evangelista in orthopaedics who recommended use of spanxs. Examination: Patient is alert, conversant, comfortable, ambulating Moderate NLFs Mild marionette lines Moderate vertical perioral upper lip rhytides, mild lower lip rhytides Paucity of volume of upper lip. Transverse rhytides moderate at oral commisures Impression: Allyson Cesar is a 59 y.o. female who was seen today for Juvederm injections. Procedure consent was reviewed and signed in the office today. Plan: 1. F/U PRN further injections or to rediscuss Reynaga Gabrielle options. I, Aretha Dunn, am acting as scribe for Dr Root. All work documented was performed by Dr Root. ???I performed the above scribed service and agree with the accuracy of the note?? DIVINE ROOT MD documented in this encounter Procedure Notes Divine Root MD - 10/15/2015 2:34 PM EDTAssociated Order(s): JUVADERM INJECTION, COSMETIC Procedure(s): INJECTION JUVEDERM PRFM Pre-Procedure Diagnose(s): Rhytides Allyson Cesar persented today for juvederm injections. Procedure: Topical lidocaine applied until patient reported numbness Under sterile conditions: 0.4 ml of juvederm injected into upper lip anna border vertical rhytides and 0.2 cc to each oral commissure Total 0.8 cc injected Well tolerated Light compression and application of cold compresses to treated areas. F/U PRN documented in this encounter Plan of Treatment Upcoming Encounters Date Type Specialty Care Team Description 07/09/2023 Office Visit Dermatology Patrick Villafana MD [address] [place] [address] DERMATOLOGY [place], [place] [address] (Wo rk) documented as of this encounter Procedures Procedure Name Priority Date/Time Associated Diagnosis Comme nts INJECTION JUVEDERM Routine 10/15/2015 3:30 PM Rhytides Res ults for this PRFM EDT procedure are i n the results section. documented in this encounter Results INJECTION JUVEDERM PRFM (10/15/2015 3:30 PM EDT) Narrative Divine Root MD - 10/15/2015 3:30 P M EDT Divine Root MD ? 10/15/2015 ??3:30 PM Allyson Cesar persented today for juved erm injections. Procedure: Topical lidocaine applied until patient reported numbness Under sterile conditions: 0.4 ml of juvederm injected into upper l ip anna border vertical rhytides and 0.2 cc to each ora l commissure Total 0.8 cc injected Well tolerated Light compression and application of col d compresses to treated areas. F/U PRN Divine Root MD DERM PROCEDURE ORDERABLES documented in this encounter Visit Diagnoses Diagnosis Rhytides Other specified hypertrophic and atrophi c condition of skin documented in this encounter Care Teams Railroad Brakeman Relationship Specialty Start Date End Date Breanna Cortez MD PCP - General 03/06/[address] [place] [address] [address] [facility] [address] [place] [address] documented as of this encounter
--- OUTSIDE RECORDS SUMMARY | 2022-05-20 08:24 | XMS_ITS | Encounter Summary ---
:1955 Author Organization [facility] Address [address] [place] [address] Care Team Providers Name Role Phone Unavailable Primary Care Provider Unavailable Encounter Details Date Type Department Care Team Description 07/31/1999 Results Only [facility] - Doris Higuera NP conversion [address] [place] [address] Social History Tobacco Use Types Packs/Day Years Used Date Smoking Tobacco: Never Assessed Sex Assigned at Date Recorded Not on file documented as of this encounter Plan of Treatment Not on filedocumented as of this encounter Procedures Procedure Name Priority Date/Time Associated Diagnosis Comme nts CYTOPATHOLOGY Routine 07/31/1999 13:02 EST Result s for this procedure are i n the results section . documented in this encounter Results CYTOPATHOLOGY (07/31/1999 13:02 EST) Component Value Ref Test Analysis Performed At [facility] Method Time [facility] Pathology CYTOPATHOLOGY REPORT LEISA Report: [facility] Reports generated via electronic interface contain original data; however they are lacking the format of the original report. Caution should be taken when reading/interpreting unformatte d reports. Name: ? ALLYSON KURTZ ? Accession #: ? [id number] : ? 1955 (Age: 43) ??F ?Collect Date: ? 07/31/1999 Location: ?Receive Date: ? 0 07/31/1999 Provider: ?DORIS JARQUIN NP Copy to: ?DORIS JARQUIN NP ? Specimen/Source: ?[employer] Last Menstrual Period: ? GYNECOLOGIC ??CYTOPATHOLOGY ??RE PORT Name: ALLYSON KURTZ ? [facility] M RN: [id number] : 1955 ?? 43Y F ?Client ID: [id number] SS#: ? Clinician: FREDDY ZHU, ERAN ?? Location: [facility] ??Copy to: ?? Specimen: ?[employer]Prep ? Source: Cervix/Endocervix ?Collected: 07/29/99 ? Received: 07/31/1999 ?LMP: 07/22/99 ? Hormone Therapy: ? : ?Radiation Therapy: ? Post : ? Chemotherapy: ?IUD: ?Prev Abnormal Pap: Yes ?? Clinical Hx: ASCUS 1988, Endometrial polyp, Cryo ?(Blank carlisle indicate information not provided on req uisition) SPECIMEN ADEQUACY: ? Satisfactory For Evaluation ?? GENERAL CATEGORIZATION: ? WITHIN NORMAL LIMITS ? Reviewed And Electronically Signed By: ? Leobardo Jay, CT(A SCP) ? Report Date: ?? 0 08/01/1999 [employer] Archived Tests - Final Diagnosis Text Field: Clinical History : ;ASCUS 1988, Endometrial polyp, Cryo ? Document reviewed and electronically signed by: ? Conversion ? Report Date: ??08/01/1999 00:00 End of Report Specimen Anatomical Collection Method Collection Time Receive d Time (Source) Location / / Volume Laterality 07/31/1999 13:02 07/31/1999 EST 13:03 EST Doris Jarquin NP PATHOLOGY ORDERABLES Performing Organization Address City/State/ZIP Code Phon e Number [facility] [address] [place] [address] SERVICES [facility] [address] [place] [address] documented in this encounter Visit Diagnoses Not on filedocumented in this encounter
--- OUTSIDE RECORDS SUMMARY | 2022-05-20 08:24 | XMS_ITS | Encounter Summary ---
:1955 Author Organization [place] [address] Care Team Providers Name Role Phone Lexus Cortez MD Primary Care Provider Reason for Referral Diagnostic Test (Routine) - Closed Specialty Diagnoses / Procedures Referred By Contact Refer red To Contact Radiology Diagnoses Traumatic hematoma of thigh, unspecified laterality, subsequent encounter Divine Root MD Radiology Procedures IR all drainage procedures [facility] [place] [address] [place] [address] Referral ID Status Reason Start Date Expiration Date Visits V isits Requested Authorized [id number] Closed Specialty 04/26/2015 04/25/2016 1 1 Service Requested Reason for Visit Diagnostic Test (Routine) - Closed Specialty Diagnoses / Procedures Referred By Contact Refer red To Contact Radiology Diagnoses Traumatic hematoma of thigh, unspecified laterality, subsequent encounter Divine Root MD Radiology Procedures IR all drainage procedures [facility] [place] [address] [place] [address] Referral ID Status Reason Start Date Expiration Date Visits V isits Requested Authorized [id number] Closed Specialty 04/26/2015 04/25/2016 1 1 Service Requested Encounter Details Date Type Department Care Team Description 05/02/2015 Hospital Encounter Radiology at [facility] Divine Root Tra[facility], of thigh, [facility] [place], [place] [address] [place], [address] PLASTIC SURGERY subsequent encounter [phone] [place] [address] Social History Tobacco Use Types Packs/Day Years Used Date Smoking Tobacco: Never Smokeless Tobacco: Never Alcohol Use Standard Drinks/Week Comments Yes 7 (1 standard drink = 0.6 oz pure alcoho l) Sex Assigned at Date Recorded Not on file documented as of this encounter Last Filed Vital Signs Vital Sign Reading Time Taken Comments Blood Pressure 111/58 05/02/2015 3:38 PM EDT Pulse 65 05/02/2015 3:25 PM EDT Temperature 36.1 ??C (97 ??F) 05/02/2015 3:38 PM EDT Respiratory Rate 14 05/02/2015 3:38 PM EDT Oxygen Saturation 98% 05/02/2015 3:38 PM EDT Inhaled Oxygen Concentration - - Weight - - Height - - Body Mass Index - - documented in this encounter Discharge Instructions Discharge Rissa Unger RN - 05/02/2015 3:54 PM EDT [facility] Vascular and Interventional Radiology Signs And Symptoms Of Infections This information is designed to inform you of the signs and symptoms of an infection. Wound infection may occur at any time, but it is evident more often 4-7 days after your procedure. Signs and symptoms may involve one or more the following: ??? Temperature equal to or greater than 101 degrees Fahrenheit. ??? Swelling and redness in or around the wound. ??? Red streaks on your skin near the wound. ??? Foul smelling drainage or pus from the wound. ??? Shaking chills. If you suspect an infection related to your procedure please contact your healthcare provider. When to call the Interventional Radiology Department: Please call with any questions or concerns. Ifit is during regular office hours, please call [phone]. If it is after regular office hours, oron weekends or holidays, please call [phone] and ask to speak to the Broadcast Designer on callfor Interventional Radiology. Revised 04/09/12 documented in this encounter Medications at Time [...] documented as of this encounter Progress Notes ForMac golden MD - 05/01/2015 2:06 PM EDT Images from the original note were not included. PRE-PROCEDURE VIR NOTE Date of : 1955 Age: 59 y.o. PCP: LEXUS CORTEZ MD (General) Referring Physician (if different): Dk Indication: Persistent fluid collection s/p trauma Planned Procedure: US guided RIGHT thigh drain placement Chief [...] after ultra sound to discuss surgical options. 04/27/15 Impression Ultrasound - Unilateral Extremity - Summary Lenticular 14.8 x 5.2 x 1.5 mm fluid collection with internal echogenic nonvascular components, in the posterior superior deep tissues of the right thigh. Findings are suggestive of a chronic hematoma. Pertinent Past Medical/Surgical History: Patient Active Problem [...] Mallampati Class: 2 Assessment / Plan: US guided RIGHT thigh drain placement Medications to discontinue: none Prophylactic antibiotic: None Planned access site / position: supine Rachid Lambert RN - 04/30/2015 4:49 PM EDT ANGIO/VIR NURSING DATABASE Name: IAM KURTZ Date of : 1955 AGE 59 y.o. Address: [address] [place] [phone] (home) Mobile: Telephone Information: Referring Provider: Divine Root PROCEDURE: Right thigh seroma drain plmt-hx of trauma Allergies Allergen Reactions ??? Sulfa (Sulfonamide Antibiotics) [...] for: CREATININE No results found for: K No results found for: PLATELET Medications: Prior to Admission medications Medication Sig Start Date End Date Taking? Authorizing Provider MAGNESIUM ORAL Take by mouth. PROVIDER, HISTORICAL calcium carbonate 648 mg calcium [...] informed this patient that they require a auto carrier driver to be present and in the building to drive them home after this procedure. In the absence of a auto carrier driver, IR will not beable to perform this procedure and will need to reschedule. Pt verbalized understanding of these inst ructions during the pre-procedure education via phone. (initials) documented in this encounter Plan of Treatment Upcoming Encounters Date Type Specialty Care Team Description 07/09/2023 Office Visit Dermatology Patrick Villafana MD [address] [place] [address] RD DERMATOLOGY [place], [place] [address] (Wo rk) documented as of this encounter Procedures Procedure Name Priority Date/Time Associated Diagnosis Comme nts IR ALL DRAINAGE Routine 05/02/2015 3:36 PM Traumatic hematoma Results for this PROCEDURES EDT of thigh, procedure are i n unspecified the results laterality, section. subsequent encounter PLATELET COUNT STAT 05/02/2015 12:37 Results f or this PM EDT procedure are i n the results [...] ?Shai Becker MD ? Divine Root MD IM IR ORDERABLES Platelet count (05/02/2015 12:37 PM EDT) P athologist Signature Platelets 296 145 - 370 CERNER x10(3)/mcL [facility] Specimen Anatomical Collection Method Collection Time Receive d Time (Source) Location / / Volume Laterality Blood specimen 05/02/2015 12:37 5 (specimen) PM EDT 12:49 PM EDT Resulting Agency Comment Spec In Lab Divine Root MD HEMATOLOGY ORDERABLES Performing Organization Address City/State/ZIP Code Phon e Number [place] [id number] [facility] [address] ARCENIO AN documented in this encounter Visit Diagnoses Diagnosis Traumatic hematoma of thigh, unspecified laterality, subsequent encounter documented in this encounter Administered Medications Inactive Administered Medications - up to 3 most recent administrations Medication Order MAR Action Action Date Dose Rate Site fentaNYL 50 mcg/mL multi-dose Given 05/02/2015 3:15 PM EDT 25 mc g injection 25-50 mcg, Intravenous, EVERY 5 MIN PRN, Starting on Thu05/02/15 at 1343, Until Tosha 05/03/15 at 0334, Pain, per unit protocol, For use in Interventional Radiology (IR) only for procedural sedation with direct provider supervision and verbal order., Angio/IR (Intra-Procedure), Routine Given 05/02/2015 3:10 PM EDT 25 mcg Given 05/02/2015 3:05 PM EDT 50 mcg midazolam (PF) (VERSED) 1 mg/mL multi-dose Given 05/02/2015 3:15 PM EDT 0.5 mg injection 0.5-1 mg 0.5-1 mg, Intravenous, EVERY 5 MIN PRN, Starting on Thu05/02/15 at 1343, Until Tosha 05/03/15 at 0334, Anxiety, per unit protocol, For use in Interventional Radiology (IR) only for procedural sedation with direct provider supervision and verbal order., Angio/IR (Intra-Procedure), Routine Given 05/02/2015 3:10 PM EDT 0.5 mg Given 05/02/2015 3:05 PM EDT 1 mg documented in this encounter Care Teams Sap Ppm Consultant Relationship Specialty Start Date End Date Lexus Cortez MD PCP - General 03/06/[address] [place] [address] documented as of this encounter
--- OUTSIDE RECORDS SUMMARY | 2022-05-20 08:24 | XMS_ITS | Encounter Summary ---
:1955 Author Organization [facility] Address [address] [place] [address] Care Team Providers Name Role Phone Unavailable Primary Care Provider Unavailable Encounter Details Date Type Department Care Team Description 06/09/2000 Results Only [facility] - Nawaf Arreola MD conversion [address] [place] [address] Social History Tobacco Use Types Packs/Day Years Used Date Smoking Tobacco: Never Assessed Sex Assigned at Date Recorded Not on file documented as of this encounter Plan of Treatment Not on filedocumented as of this encounter Procedures Procedure Name Priority Date/Time Associated Diagnosis Comme nts SURGICAL PATHOLOGY Routine 06/09/2000 0:00 EST Re sults for this procedure are i n the results section. documented in this encounter Results SURGICAL PATHOLOGY (06/09/2000 0:00 EST) Component Value Ref Test Analysis Performed At [facility] Method Time Signature Pathology SURGICAL PATHOLOGY REPORT CAMILA ZIMMER Report: Reports generated via electronic interface contain origina l data; [facility] however they are lacking the format of the original report. Caution should be taken when reading/interpreting unformatte d reports. Name: ? ALLYSON KURTZ ? Accession #: ? [id number] ? : ? 1955 (Age: 44) ??F ? Collect Date: ? 06/09/2000 ? Location: ? [facility] ? Receive Date: ? 06/11/2000 ? Provider: NAWAF ARAIZA MD Copy to: ARIANE COVARRUBIAS MD ? Final Pathologic Diagnosis: ? Cervix, biopsy: - Benign endocervical polyp. Document reviewed and electronically signed by: Mary Ellen Allison MD Report ??Date: 06/12/2000 16:47 By the signature above, the attending physician certifies th at he/she has personally conducted a gross and/or microscopic examin ation of the described specimens and rendered or confirmed the above diagnosis. Specimen(s) Received: ? Cervical biopsy Clinical History: ? Postcoital bleeding; benign appearing cx polyp; LMP: 05/22/00 Gross Description: ? Received in formalin labelled Kurtz and cx polyp is a fuller-red polypoid hyperemic 1.0 x ??0.9 x ??0. 3 cm soft tissue. ??The specimen is entirely submitted in one cassette. ?? (Mack Gary)/yudi End of Report Specimen (Source) Anatomical Collection Method Collection Time Re ceived Time Location / / Volume Laterality 06/09/2000 06/11/2000 9:18 EST Nawaf Araiza MD PATHOLOGY ORDERABLES Performing Organization Address City/State/ZIP Code Phon e Number [facility] [address] [place] [address] [facility] [address] [place] [address] documented in this encounter Visit Diagnoses Not on filedocumented in this encounter
--- OUTSIDE RECORDS SUMMARY | 2022-05-20 08:24 | XMS_ITS | Encounter Summary ---
:1955 Author Organization [facility] [place] [address] Care Team Providers Name Role Phone Breanna Cortez MD Primary Care Provider Encounter Details Date Type Department Care Team Description 04/27/2015 Hospital Encounter Ultrasound at [facility] Traumatic hematoma [facility] MD Ruby of [facility], [facility] unspecified [place], [place] [address] [place], [address] PLASTIC SURGERY subsequent encounter [phone] [place] [address] Social History Tobacco Use Types Packs/Day Years Used Date Smoking Tobacco: Never Smokeless Tobacco: Never Alcohol Use Standard Drinks/Week Comments Yes 7 (1 standard drink = 0.6 oz pure alcoho l) Sex Assigned at Date Recorded Not on file documented as of this encounter Medications at Time of Discharge Medication Sig Dispensed Refills Start Date End Date MAGNESIUM ORAL Take 400 mg by mouth [...] 0 05/29/2015 documented as of this encounter Plan of Treatment Upcoming Encounters Date Type Specialty Care Team Description 07/09/2023 Office Visit Dermatology Patrick Villafana MD [address] [facility] DERMATOLOGY [place], [place] [address] (Wo rk) documented as of this encounter Procedures Procedure Name Priority Date/Time Associated Diagnosis Comme nts US EXTREMITY NON Routine 04/27/2015 1:46 PM Traumatic hematoma Results for this VASCULAR LIMITED EDT of thigh, procedure a re in ANATOMIC SPECIFIC unspecified the result s BILATERAL laterality, section. subsequent encounter documented in this encounter Results US Extremity Non Vascular Limited Anatomic Specific [...] 02:20 pm) Patient Info ID #: ? [id number] ?: ??[birth year] (59 yrs) Name: ? IAM KURTZ ? Visit Date: 04/27/2015 01:32 pm Performed By Performed By: ? Monique TOVAR, ??Cherelle garcia Attending: ?Dashawn PETERSON, Juan J Espinal Associate: ?Kim Dougherty MD Referred By: ?DIVINE ROOT MD Service(s) Provided ??UEXTLIMR - Ultrasound Extremity Limit ed - Right - ? 38411 ??[id number] Indications ??s/p right thigh injury with contour [...] 015 02:20 pm) Patient Info ID #: [id number] : [birth year] (59 y rs) Name: IAM KURTZ Visit Date: 2014 01:32 pm Performed By Performed By: Anne Amaya RDMS Attending: Trevon Tamez MD Associate: Kim Dougherty MD Referred By: DIVINE ROOT MD Service(s) Provided UEXTLIMR - Ultrasound Extremity Limited - Right - [id number] Indications s/p right thigh injury with contour [...] encounter documented in this encounter Care Teams Gas Dispatcher Relationship Specialty Start Date End Date Breanna Cortez MD PCP - General 03/06/[address] [place] [address] documented as of this encounter
--- NOTE | 2022-05-20 09:15 | DI.US_ITS ---
APPROVED REPORT EXAM: Comprehensive 2D, Doppler, and color-flow Echocardiogram Patient Location: Out-Patient Film Vault Supervisor: Neha Echols RDCS (AE) Indications: Assess valves and EF, New edema, h/o SVT Other Information Study Quality: Good Conclusion Normal left ventricular wall thickness and chamber size. Estimated ejection fraction is 60%. Wall m otion is normal Normal right ventricular size and systolic function Both atria are normal in size There is no structural or hemodynamically significant valvular disease Estimated right ventricular systolic pressure is 21 mmHg Wall motion Left Ventricle The left ventricle is normal size. The left ventricular systolic function is normal. The left ventric ular ejection fraction is within the normal range. There is normal left ventricular wall thickness. T here is normal LV segmental wall motion. There is no ventricular septal defect visualized. LVEF is 60 %. Right Ventricle The right ventricle is normal size. The right ventricular systolic function is normal. The RVSP is 21 .4 mmHg. Atria The left atrium size is normal. The right atrium size is normal. The interatrial septum is intact wit h no evidence for an atrial septal defect. Aortic Valve The aortic valve is normal in structure. Aortic valve is trileaflet. There is no aortic valvular sten osis. No aortic regurgitation is present. Mitral Valve The mitral valve is normal in structure. No evidence of mitral valve stenosis. Trace mitral regurgita tion. Tricuspid Valve The tricuspid valve is normal in structure. There is no tricuspid valve stenosis. Trace to mild tricu spid regurgitation. Pulmonic Valve The pulmonary valve is normal in structure. There is no pulmonic valvular stenosis. Trace pulmonic re gurgitation. Great Vessels The aortic root is normal in size. The ascending aorta is normal in size. IVC is normal in size and c ollapses >50% with inspiration. Pericardium There is no pericardial effusion. 2D Dimensions IVSD d PLAX 0.77 cm F: 0.6-1.0 LV Vol A2C d MOD 83.7 mL LVPW d PLAX 0.77 cm F: 0.6 - 1.0 LV Vol A4C d MOD 87.4 mL LVID d PLAX 4.00 cm F: 3.8 - 5.2 LA vol/ BSA A4C s A-L 18.8 mL/m2 LVDs 2.70 cm F: 2.2 - 3.5 LA Area A4C s MOD 12.97 cm2 Ao Root d 2.82 cm F: 2.7 - 3.3 LV EF A4C MOD 60.3 % RA Area A4C 11.98 cm2 LV EF A2C MOD 60.3 % RA Vol/ BSA A4C s A-L 16.7 mL/m2 LV EF Biplane MOD 60.3 % Ao Asc Diam d 2.78 cm F: 2.3 - 3.1 SV 52.08 mL LV EF Teichholz 60.1 % SV Index 29.92 mL/m2 LVEF (Fragoso's) 60.35 % F: 54 - 74 LV Volume 67.94 mL F: 46 - 106 LV Volume Index 39.04 mL/m2 F: 29 - 61 LV Vol Biplane MOD 86.3 mL FS 31.55 % M-Mode TAPSE 2.68 cm (M/F) >1.7 LV Diastology MV E' medial 0.052 (>0.07 m/s) E/A Ratio 1.1 LV E/e MED 10.90 (<14) MV E Vmax 0.57 (0.4-1.3 m/s) MV E' lateral 0.066 (>0.1 m/s) MV A Vmax 0.50 (0.4-1.3 m/s) LV E/e LAT 8.60 (<14) MV E/A Ratio 1.06 MV E/E' medial 10.91 MV E/E' lateral 8.63 Aortic Valve LVOT Area 3.32 cm2 AoV Area Vmax 2.60 cm2 LVOT Vmax 0.73 m/s AoV Area/ BSA (Vmax) 1.49 cm2/m2 LVOT Mean Kevin. 0.49 m/s HAMILTON Mean Kevin. 2.66 cm2 LVOT Peak Grad 2.1 mmHg HAMILTON Mean Kevin. Index 1.53 cm2/m2 LVOT Mean Grad 1.1 mmHg LVOT VTI 0.158 m LVOT Diam s 2.05 cm AoV Vmax 0.93 m/s Velocity Ratio 0.78 AoV Mean Kevin. 0.61 m/s AoV Peak Grad 3.5 mmHg LVOT SV 52.59 mL AoV Mean Grad 1.7 mmHg AoV VTI 0.211 m AoV Area VTI 2.50 cm2 AoV Area/ BSA (VTI) 1.43 cm/m2 Mitral Valve MV DT 186 (160-240 msec) MV PHT 54 msec MV Area PHT 4.07 cm2 MV VTI 0.175 m MV Area VTI 3.00 (4.0-6.0 cm2) Pulmonary Valve PV Vmax 0.64 (0.5-1.5 m/s) RVOT Peak Gr. 1.31 mmHg PV Peak Grad 1.7 mmHg RVOT Mean Gr. 0.70 mmHg PV Mean Grad 1.0 mmHg RVOT VTI 0.134 m PV VTI 0.152 m RVOT Vmax 0.57 m/s Tricuspid Valve TR Peak Grad 18.3 mmHg TR Vmax 2.14 m/s RA Pressure 3.00 mmHg RVSP (TR) 21.4 mmHg
== END ==
PROVIDERS: PCP Nurse Practitioner Adult Health; Visit Provider Nurse Practitioner Adult Health
DX: R07.9 Chest pain, unspecified (principal); R60.0 Localized edema; Z86.79 Personal history of other diseases of the circulatory system
CPT/HCPCS: 93306

== ENCOUNTER 2022-10-21 01:25 | Outpatient (CLI) | payer MEDICARE, SELFPAY ==
--- NOTE | 2022-10-21 06:45 | DI.MAMMO_ITS ---
Exam(s) MAMMO DIAGNOSTIC UNI EXAM: MAMMO DIAGNOSTIC UNI CLINICAL HISTORY: 6 month f/u,f/u abnl/inconclusive mammo, r92.8. TECHNIQUE: Craniocaudal and mediolateral oblique Full Field Digital Mammography views of the right b reast with Computer Aided Diagnosis followed by Tomosynthesis. COMPARISON: Comparison is made with prior examinations. FINDINGS: Mammography/Tomosynthesis: Masses/Architectural Distortion: None seen. Microcalcifictions: No suspicious pleomorphic-type are seen. Skin Thickening/Nipple Retraction: None. IMPRESSION: 1. No evidence of malignancy is noted. 2. Unless there is more urgent need, follow-up screening mammography is recommended, as per [employer] guidelines. 3. The findings were discussed with the patient on the date of the examination. BI-RADS Category 1 - Negative Breast Density - Category B - Scattered areas of fibroglandular density Breast density Category C or D implies that the patient has dense breast tissue. Dense breast tissue can make it harder to find cancer on a mammogram. Dense breast tissue is also associated with an incr eased risk of breast cancer. This information about the result of the mammogram report was provided to the patient to raise their awareness. Use this report when you speak with the patient about their risks for breast cancer, which includes their family history. At that time, you may recommend additional screening tests (Ultrasoun d or MRI) as these tests may add significant information. A negative radiographic report should not delay biopsy if a dominant or clinically suspicious mass is present. Up to ten percent of cancers are not identified on mammography. A negative report may reinforce clinical impression. Adenosis and dense breasts may obscure an underlying neoplasm. False positive reports average 6 to 10%. Patient will receive a letter notifying them of these results.
== END 2022-10-21 01:45 ==
LOC: DI 01:26
PROVIDERS: PCP Nurse Practitioner Adult Health; Visit Provider Nurse Practitioner Women's Health
DX: R92.8 Other abnormal and inconclusive findings on diagnostic imaging of breast (principal)
CPT/HCPCS: 77061; 77065; G0279

== ENCOUNTER 2022-10-23 10:56 | Outpatient (CLI) | payer MEDICARE, SELFPAY ==
--- NOTE | 2022-10-23 10:00 | DI.RAD_ITS ---
Exam(s) XR FINGER RT INDEX EXAM: XR FINGER RT INDEX CLINICAL HISTORY: RIF pain. TECHNIQUE: 2D digital imaging was performed. Three views. COMPARISON: No exams were available for comparison FINDINGS: BONES: No acute fracture is present. No bony destructive lesion is seen. JOINTS: No dislocation present. No significant degenerative changes. SOFT TISSUE: Normal. IMPRESSION: No acute abnormality. DATA REPOSITORY: RADIATION DOSE DELIVERED:
== END 2022-10-23 10:57 | disposition home or self-care (01) ==
LOC: DIORS 10:57
PROVIDERS: PCP Nurse Practitioner Adult Health; Referring Provider Nurse Practitioner Adult Health; Visit Provider Physician Assistant
DX: S60.021D Contusion of right index finger without damage to nail, subsequent encounter (principal); X58.XXXD Exposure to other specified factors, subsequent encounter
CPT/HCPCS: 99213; 73140

== ENCOUNTER 2022-11-10 03:01 | Outpatient (CLI) | payer MEDICARE, SELFPAY ==
[2022-11-10 12:08] LABS: Anion Gap 8.8 mmol/L (3-11); BUN 14 mg/dL (7-18); CO2 28.2 mmol/L (21.0-32.0); CREATININE 0.9 mg/dL (0.55-1.02); Calcium 9.5 mg/dL (8.5-10.1); Chloride 104 mmol/L (98-107); Estimated GFR 70.95 (mL/min/1.73m2); Glucose 114 mg/dL (74-106); Potassium 4.1 mmol/L (3.5-5.1); Sodium 141 mmol/L (136-145); TSH (W/Ref FT4) 1.35 uIU/mL (0.36-3.74)
[2022-11-10 12:22] LABS: Vitamin D 25 Total 59.8 ng/mL (30-100)
== END 2022-11-10 03:02 | disposition home or self-care (01) ==
LOC: LBO 03:01
PROVIDERS: PCP Nurse Practitioner Adult Health; Visit Provider Nurse Practitioner Adult Health
DX: E03.9 Hypothyroidism, unspecified (principal); F32.89 Other specified depressive episodes; M85.88 Other specified disorders of bone density and structure, other site
CPT/HCPCS: 36415; 80048; 82306; 84443

== ENCOUNTER 2023-01-12 14:58 | Outpatient (CLI) | payer MEDICARE, SELFPAY ==
[2023-01-12 10:34] LABS: Abs Immature Grans 0.01 10^3/uL (0.0-0.06); Absolute Basophil Count 0.04 10^3/uL (0.0-0.2); Absolute Lymphocyte Count 1.25 10^3/uL (1.2-3.4); Absolute Monocyte Count 0.58 10^3/uL (0.1-0.8); Absolute Neutrophil Count 2.42 10^3/uL (1.2-6.7); Basophils % 0.9; Eosinophils % 6.5; HCT 40.9 % (36.0-46.0); HGB 13.9 g/dL (11.2-15.7); Immature Grans % 0.2; Lymphocytes % 27.2; MCH 31.9 pg (27.0-33.0); MCV 94 fL (80-95); MPV 8.7 fL (8.0-11.0); Monocytes % 12.6; Neutrophils % 52.6; Platelet Count 348 10^3/uL (130-400); RBC 4.36 10^6/uL (3.93-5.22); RDW 11.9 % (11.7-14.6); RDW-SD 41.2 fL
[2023-01-12 11:04] LABS: Bilirubin, Direct 0.1 mg/dL (0.0-0.2)
[2023-01-12 11:07] LABS: ALT 38 U/L (14-59); AST 22 U/L (15-37); Alkaline Phosphatase 64 U/L (46-116); Anion Gap 7.6 mmol/L (3-11); BUN 6 mg/dL (7-18); Bilirubin, Total 0.6 mg/dL (0.2-1.0); CO2 30.4 mmol/L (21.0-32.0); CREATININE 0.8 mg/dL (0.55-1.02); Calcium 9.2 mg/dL (8.5-10.1); Chloride 107 mmol/L (98-107); Estimated GFR 81.72 (mL/min/1.73m2); Glucose 99 mg/dL (74-106); Potassium 3.4 mmol/L (3.5-5.1); Sodium 145 mmol/L (136-145); Total Protein 6.6 g/dL (6.4-8.2)
== END 2023-01-12 14:59 | disposition home or self-care (01) ==
LOC: LBO 14:59
PROVIDERS: PCP Nurse Practitioner Adult Health; Visit Provider Family Medicine
DX: R19.7 Diarrhea, unspecified (principal); M81.0 Age-related osteoporosis without current pathological fracture
CPT/HCPCS: 36415; 80053; 82248; 85025

== ENCOUNTER 2023-01-13 18:36 | Outpatient (REF) | payer MEDICARE, SELFPAY ==
[2023-01-15 20:48] LABS: Calprotectin <50.0 mcg/g
== END 2023-01-13 18:37 | disposition home or self-care (01) ==
LOC: LBN 18:36
PROVIDERS: PCP Nurse Practitioner Adult Health; Visit Provider Family Medicine
DX: R19.7 Diarrhea, unspecified (principal)
CPT/HCPCS: 87329; 83993

== ENCOUNTER 2023-01-14 01:01 | Outpatient (CLI) | payer MEDICARE, SELFPAY ==
--- NOTE | 2023-01-14 08:00 | DI.US_ITS ---
Exam(s) US ABDOMEN EXAM: US ABDOMEN CLINICAL HISTORY: 10 days of diarrhea with bilious stool,R19.7 TECHNIQUE: Ultrasound of complete upper abdomen performed using standard protocol. COMPARISON: US US ECHOCARDIOGRAM from 05/20/2022 FINDINGS: There is no ascites evident. LIVER: There are no hepatic lesions evident nor obvious dilatation of intrahepatic ducts. GALLBLADDER/BILIARY: There are no gallstones. No gallbladder wall edema nor pericholecystic fluid. The common hepatic duct isnot dilated, measuring 3mm at the level of rosario hepatis. PANCREAS: There is no evidence of pancreatic mass nor dilatation of the pancreatic duct. SPLEEN: The spleen is not enlarged and there are no intrasplenic lesions evident. KIDNEYS:Kidneys exhibit normal size with no evidence of cortical cysts, calculi, or hydronephrosis. 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 ABDOMINAL AORTA: There is no evidence of abdominal aortic aneurysm. IVC: Normal diameter where visualized. IMPRESSION: 1. No evidence of cholelithiasis nor dilatation of the biliary tree. 2. No other significant acute ultrasound findings in the upper abdomen. 3. 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 DATA REPOSITORY:
== END 2023-01-14 01:21 ==
LOC: DI 01:02
PROVIDERS: PCP Nurse Practitioner Adult Health; Visit Provider Family Medicine
DX: R19.7 Diarrhea, unspecified (principal)
CPT/HCPCS: 76700

== ENCOUNTER 2023-02-06 00:40 | Outpatient (CLI) | payer MEDICARE, SELFPAY ==
--- NOTE | 2023-02-06 07:30 | DI.NM_ITS ---
Exam(s) NM HEPATOBILIARY CCK GRP EXAM: NM HEPATOBILIARY CCK GRP CLINICAL HISTORY: ?cholestasis; recent ok abd U/S, DIARRHEA, R19.7. TECHNIQUE: Injected dose: 5 mCi Tc-99 mebrofenin Initial dynamic images: 60 minutes Post-Gallbladder fillin.02 mcg/kg CCK intravenously over a 15min infusion. Addition images: 20 minute dynamic during CCK administration. COMPARISON: Ultrasound 01/14/2023 reviewed. That ultrasound did not reveal gallstones nor gallbladd er wall edema. FINDINGS: There is normal uptake and excretion of radiopharmaceutical by the liver and activity seen within the gallbladder lumen starting at 20 minutes post injection. In response to CCK infusion there is a normal ejection fraction of 53 percent demonstrated. IMPRESSION: Negative study. There is no evidence of obstruction of the cystic duct. In addition, the gallbladde r exhibits a normal ejection fraction of 53 percent. Normal in our department is greater than 35 per cent.
[2023-02-10] MEDS: Sincalide 5 MCG VIAL 1 MCG IJ (08:09)
== END 2023-02-06 01:00 ==
LOC: DI 00:41
PROVIDERS: PCP Nurse Practitioner Adult Health; Visit Provider Nurse Practitioner
DX: R19.7 Diarrhea, unspecified (principal)
CPT/HCPCS: 78227; J2805

== ENCOUNTER 2023-02-13 19:19 | Outpatient (REF) | payer MEDICARE, SELFPAY ==
[2023-02-14 12:39] LABS: Campylobacter PCR Negative (Negative); Salmonella PCR Negative (Negative); Shiga Toxin PCR Negative (Negative); Shigella/Enteroinvasive Ecoli Negative (Negative)
[2023-02-17 21:33] LABS: Pancreatic Elastase, F 240 mcg/g
== END 2023-02-13 19:20 | disposition home or self-care (01) ==
LOC: NCHCN 19:19
PROVIDERS: PCP Nurse Practitioner Adult Health; Visit Provider Nurse Practitioner Family
DX: R19.7 Diarrhea, unspecified (principal); R15.2 Fecal urgency; R15.9 Full incontinence of feces; R63.4 Abnormal weight loss; R19.5 Other fecal abnormalities; K90.49 Malabsorption due to intolerance, not elsewhere classified
CPT/HCPCS: 87505; 82656; 87177

== ENCOUNTER → 2023-03-11 07:57 | Outpatient (BNVA) | payer MEDICARE, SELFPAY | PROVIDERS: PCP Nurse Practitioner Adult Health; Referring Provider Nurse Practitioner Adult Health; Visit Provider Physical Therapy Assistant | DX: Z12.11 Encounter for screening for malignant neoplasm of colon (principal) ==

== ENCOUNTER 2024-04-01 09:34 | Outpatient (CLI) | payer MEDICARE, SELFPAY ==
[2024-04-01 10:19] LABS: ALT 29 U/L (14-59); AST 23 U/L (15-37); Albumin 3.8 g/dL (3.4-5.0); Alkaline Phosphatase 77 U/L (46-116); BUN 14 mg/dL (7-18); Bilirubin, Total 0.48 mg/dL (0.2-1.0); CREATININE 0.8 mg/dL (0.55-1.02); Calcium 9.4 mg/dL (8.5-10.1); Calculated LDL 96 mg/dL (<100); Chloride 105 mmol/L (98-107); Cholesterol 189 mg/dL (<200); Estimated GFR 81.21 (mL/min/1.73m2); Glucose 96 mg/dL (74-106); HDL Cholesterol 74 mg/dL (40-60); Potassium 4.2 mmol/L (3.5-5.1); Sodium 139 mmol/L (136-145); TSH (W/Ref FT4) 2.04 uIU/mL (0.36-3.74); Total Protein 6.6 g/dL (6.4-8.2); Triglyceride 98 mg/dL (<150)
== END 2024-04-01 09:35 | disposition home or self-care (01) ==
LOC: LBO 09:34
PROVIDERS: PCP Nurse Practitioner Adult Health; Visit Provider Nurse Practitioner Adult Health
DX: E03.9 Hypothyroidism, unspecified (principal); Z13.220 Encounter for screening for lipoid disorders; Z13.1 Encounter for screening for diabetes mellitus
CPT/HCPCS: 36415; 80053; 80061; 84443

== ENCOUNTER 2024-04-28 01:36 | Outpatient (CLI) | payer MEDICARE, SELFPAY ==
--- NOTE | 2024-04-28 06:30 | DI.DEXA_ITS ---
Exam(s) XR DEXA BONE DENSITY W/WO NURYS EXAM: XR DEXA BONE DENSITY W/WO NURYS CLINICAL HISTORY: COMPARE TO 2018,INTERVAL FOLLOW UP, OSTEOPENIA,SCREENING FOR OSTEOPOROSIS,Z TECHNIQUE: Routine DEXA evaluation of the lumbar spine, hip, or forearm. COMPARISON: Prior DEXA scan of November 2017 FINDINGS: Performed on a HoloTrampoline unit. Lateral image: Indentation of the superior endplate of L4 noted Lumbar Spine total T-score: -0.7. Prior reading in 2018 was -0.5 Hip total T-score:-1.1. Prior reading in 2018 was -1.4 Independent reading at the level of the femoral neck yields T-score of -2.0 Forearm total T-score: -3.2. Prior reading in 2018 was -2.3 IMPRESSION: Bone mineral density measures in the normal range for lumbar spine; osteopenia range for the hip; ost eoporosis range for the forearm/wrist. Fracture risk is highest at the level the wrist Note: Any spine fracture indicates 5x risk for subsequent spine fracture and 2x risk for subsequent h ip fracture. World Health Organization criteria for BMD interpretation classify patients: Normal...... T- Score at or above -1.0 Osteopenic... T- Score between -1.0 and -2.5 Osteoporosis... T-Score at or below -2.5
--- NOTE | 2024-04-28 06:30 | DI.MAMMO_ITS ---
Exam(s) MAMMO SCREENING EXAM: MAMMO SCREENING CLINICAL HISTORY: screening,Z12.39. TECHNIQUE: Bilateral full field digital CC and MLO mammographic images were obtained with 3D tomosyn thesis and utilizing computer aided detection (CAD). COMPARISON: Prior mammograms were reviewed. FINDINGS: There has been no significant change in the appearance and distribution of the fibroglandular tissue. Stable benign-appearing nodule inferiorly in the left breast unchanged from at least 2015. Also small benign-appearing nodule laterally in the right breast unchanged from prior mammograms. There are no new spiculated masses nor malignant appearing microcalcification groups. There is no significant architectural distortion nor skin thickening-retraction. IMPRESSION: Stable benign-appearing findings. No radiographic evidence of malignancy. BI-RADS Category 2 - Benign Findings Breast Density - Category B - Scattered areas of fibroglandular density Breast density Category C or D implies that the patient has dense breast tissue. Dense breast tissue can make it harder to find cancer on a mammogram. Dense breast tissue is also associated with an incr eased risk of breast cancer. This information about the result of the mammogram report was provided to the patient to raise their awareness. Use this report when you speak with the patient about their risks for breast cancer, which includes their family history. At that time, you may recommend additional screening tests (Ultrasoun d or MRI) as these tests may add significant information. A negative radiographic report should not delay biopsy if a dominant or clinically suspicious mass is present. Up to ten percent of cancers are not identified on mammography. A negative report may reinforce clinical impression. Adenosis and dense breasts may obscure an underlying neoplasm. False positive reports average 6 to 10%. Patient will receive a letter notifying them of these results.
== END 2024-04-28 01:56 ==
LOC: DI 01:36
PROVIDERS: PCP Nurse Practitioner Adult Health; Visit Provider Nurse Practitioner Adult Health
DX: Z12.31 Encounter for screening mammogram for malignant neoplasm of breast (principal); Z78.0 Asymptomatic menopausal state; Z13.820 Encounter for screening for osteoporosis; M85.89 Other specified disorders of bone density and structure, multiple sites
CPT/HCPCS: 77063; 77067; 77080

== ENCOUNTER 2024-10-06 03:35 | Outpatient (CLI) | payer MEDICARE, SELFPAY ==
[2024-10-06 07:17] LABS: Abs Immature Grans 0.01 10^3/uL (0.0-0.06); Absolute Basophil Count 0.06 10^3/uL (0.0-0.2); Absolute Eosinophil Count 1.29 10^3/uL (0.0-0.7); Absolute Lymphocyte Count 1.89 10^3/uL (1.2-3.4); Absolute Monocyte Count 0.39 10^3/uL (0.1-0.8); Absolute Neutrophil Count 2.31 10^3/uL (1.2-6.7); Eosinophils % 21.7 %; HCT 42.6 % (36.0-46.0); HGB 14.3 g/dL (11.2-15.7); Immature Grans % 0.2 %; Lymphocytes % 31.8 %; MCH 31.2 pg (27.0-33.0); MCHC 33.6 % (32.0-36.0); MCV 93 fL (80-95); MPV 9.1 fL (8.0-11.0); Monocytes % 6.6 %; Neutrophils % 38.7 %; Platelet Count 299 10^3/uL (130-400); RBC 4.59 10^6/uL (3.93-5.22); RDW 12.8 % (11.7-14.6); RDW-SD 44.1 fL; WBC 5.95 10^3/uL (4.4-10.8)
[2024-10-06 08:18] LABS: ALT 27 U/L (14-59); AST 19 U/L (15-37); Alkaline Phosphatase 74 U/L (46-116); Anion Gap 9.3 mmol/L (3-11); BUN 22 mg/dL (7-18); Bilirubin, Total 0.5 mg/dL (0.2-1.0); CO2 29.7 mmol/L (21.0-32.0); CREATININE 0.8 mg/dL (0.55-1.02); Calcium 9.3 mg/dL (8.5-10.1); Calculated LDL 120 mg/dL (<100); Chloride 105 mmol/L (98-107); Cholesterol 206 mg/dL (<200); Estimated GFR 81.21 (mL/min/1.73m2); Ferritin 41 ng/mL (8-252); Glucose 96 mg/dL (74-106); HDL Cholesterol 74 mg/dL (>or=50); Potassium 4.7 mmol/L (3.5-5.1); Sodium 144 mmol/L (136-145); TSH (W/Ref FT4) 1.92 uIU/mL (0.36-3.74); Total Protein 6.5 g/dL (6.4-8.2); Triglyceride 60 mg/dL (<150); Vitamin B12 499 pg/mL (193-986); Vitamin D 25 Total 61 ng/mL (30-100)
[2024-10-06 08:21] LABS: Folate > 20.0 ng/mL (8.6-20.0)
== END 2024-10-06 03:36 | disposition home or self-care (01) ==
PROVIDERS: PCP Nurse Practitioner Adult Health; Visit Provider Nurse Practitioner Adult Health
DX: E03.9 Hypothyroidism, unspecified (principal); R53.83 Other fatigue
CPT/HCPCS: 36415; 80053; 80061; 82306; 82607; 82728; 82746; 84443; 85025

== ENCOUNTER → 2025-06-09 00:11 | Outpatient (CLI) | payer MEDICARE, SELFPAY ==
--- NOTE | 2025-06-09 08:05 | DI.MAMMO_ITS ---
Exam(s) MAMMO SCREENING EXAM: MAMMO SCREENING CLINICAL HISTORY: screening,z12.39. TECHNIQUE: Bilateral full field digital CC and MLO mammographic images were obtained with 3D tomosynthesis and utilizing computer aided detection (CAD). COMPARISON: Prior mammograms were reviewed. FINDINGS: There has been no significant change in the appearance and distribution of the fibroglandular tissue. Small nodular density in left breast is unchanged from 2017. Small nodular density located laterally in the right breast is unchanged from 2016. There are no new spiculated masses nor new malignant appearing microcalcification groups. There is no significant architectural distortion nor skin thickening-retraction. IMPRESSION: No radiographic evidence of malignancy. Stable benign findings. BI-RADS Category 2 - Benign Findings Breast Density - Category B - There are scattered areas of fibroglandular density. Breast density Category C or D implies that the patient has dense breast tissue. Dense breast tissue can make it harder to find cancer on a mammogram. Dense breast tissue is also associated with an increased risk of breast cancer. This information about the result of the mammogram report was provided to the patient to raise their awareness. Use this report when you speak with the patient about their risks for breast cancer, which includes their family history. At that time, you may recommend additional screening tests (Ultrasound or MRI) as these tests may add significant information. A negative radiographic report should not delay biopsy if a dominant or clinically suspicious mass is present. Up to ten percent of cancers are not identified on mammography. A negative report may reinforce clinical impression. Adenosis and dense breasts may obscure an underlying neoplasm. False positive reports average 6 to 10%. Patient will receive a letter notifying them of these results.
== END ==
LOC: DI 00:11
PROVIDERS: PCP Nurse Practitioner Adult Health; Visit Provider Nurse Practitioner Adult Health
DX: Z12.31 Encounter for screening mammogram for malignant neoplasm of breast (principal); R92.323 Mammographic fibroglandular density, bilateral breasts
CPT/HCPCS: 77063; 77067